=== PATIENT | female | born 1955 | race Caucasian/White ===

== ENCOUNTER 2016-05-30 12:13 | Observation (INO) | payer OTHER ==
[~2016-05-30] VITALS: Ht 157.5 cm; Wt 73.9 kg
[~2016-05-30 12:13] MED LIST: ADVAIR 250/501 DISK IH; ALBUTEROL1.25 MG/3 IH; ALBUTEROL2.5 MG/3 M IH; AMITRIPTYLINE H25 MG PO; ASPIR-LOW81 MG PO; ASPIRIN81 M2 PO; ATARAX,VISTARIL25 MG PO; ATARAX10 MG PO; ATIVAN1 MG PO; ATORVASTATIN CA40 MG PO; AUGMENTIN875 MG PO; BENADRYL25 MG PO; CARISOPRODOL250 MG PO; CARISOPRODOL350 MG PO; COMPAZINE10 MG PO; DEPAKOTE ER500 MG PO; DEPAKOTE500 MG PO; DESCOVY 200-251 EACH PO; DICYCLOMINE HCL20 MG PO; DIVALPROEX SOD500 MG PO; DOXYCYCLINE HY100 MG PO; DUONEB 2.5-0.5 M3 ML AEROSOL; ELAVIL50 MG PO; ELIQUIS5 MG PO; ENDOCET 5-3251 EACH PO; ERGOCALCIF50000 UNIT PO; FIORICET WI1 CAPSULE PO; FLEXERIL10 MG PO; FLUCONAZOLE200 MG PO; GABAPENTIN600 MG PO; GENVOYA TABLET1 EACH PO; IMITREX50 MG PO; INCRUSE ELLI62.5 MCG IH; LEVAQUIN750 MG PO; LEVOTHYROXINE100 MCG PO; LEVOTHYROXINE137 MCG PO; LEVOTHYROXINE150 MCG PO; LIPITOR40 MG PO; LO-DOSE ASPIRIN81 M2 PO; LORAZEPAM1 MG PO; LORTAB 5-325 M1 EACH PO; LUNESTA3 MG PO; MEDROL DOSEPAK4 MG PO; MELOXICAM15 MG PO; NAPROSYN500 MG PO; NEURONTIN300 MG PO; NEXIUM 24HR20 MG PO; NEXIUM20 MG PO; NICOTINE PATCH1 EAC1 TD; NICOTINE PATCH1 EAC2 TD; NICOTINE PATCH1 EACH TD; NORCO 5/3251 TABLET PO; OMEPRAZOLE20 MG PO; ONDANSETRON HCL4 MG PO; OXAYDO5 MG PO; OXYCODONE HCL5 MG PO; PANTOPRAZOLE SO40 MG PO; PAROXETINE HCL20 MG PO; PAXIL20 MG PO; PAXIL30 MG PO; PERCOCET 5/31 TABLET PO; PERCOCET 7.51 TABLET PO; PHENERGAN-CODE120 ML PO; PREDNISONE20 MG PO; PREDNISONE50 MG PO; PREPLUS CA-FE1 EACH PO; PROAIR HFA8.5 GM IH; PROMETHAZINE12.5 M1 PO; PROPRANOLOL HCL80 MG PO; PROVENTIL HFA6.7 GM IH; PROVENTIL2.5 MG/3 M IH; REQUIP1 MG PO; REQUIP2 MG PO; SEROQUEL200 MG PO; SUCRALFATE1 GM PO; SUMATRIPTAN SUC25 MG PO; SYMBICORT60 INHALAT IH; SYNTHROID125 MCG PO; TIVICAY50 MG PO; TRUVADA1 TABLET PO; TYLENOL WITH C1 EACH PO; VALIUM5 MG PO; VENTOLIN HFA18 GM IH; VITAMIN B-6100 MG PO; VITAMIN D31000 UNIT PO; ZITHROMAX Z-PA250 MG PO; ZOFRAN ODT4 MG PO; ZOFRAN ODT8 MG PO; ZOFRAN4 MG PO
[2016-05-30 13:39] LABS: EOSINOPHIL (%) 1.9 % (0-5); EOSINOPHIL COUNT 0.1 K/uL (0-0.3); LYMPHOCYTE COUNT 2.5 K/uL (1.0-2.8); MCH 37.2 PG (29.0-34.0); MCHC 35.4 G/DL (30.0-36.0); MCV 105.1 FL (83-99); MONOCYTE (%) 7.7 % (3-12); MONOCYTE COUNT 0.4 K/uL (0-0.8); NEUTROPHIL (%) 42.7 % (45-76); NEUTROPHIL COUNT 2.3 K/uL (1.8-6.4); RBC DIS.WIDTH-CV 12.8 % (11.8-14.6); RBC DIS.WIDTH-SD 47.8 % (39-53); RED BLOOD COUNT 3.52 M/uL (3.80-5.20); WHITE BLOOD COUNT 5.3 K/uL (4.1-10.2)
[2016-05-30 13:41] LABS: MEAN PLAT.VOLUME 8.9 uM^3 (9.5-12.4)
[2016-05-30 13:48] LABS: PROTHROMBIN TIME 10.2 (9.2-11.2); PTT 23.7 (25-32)
[2016-05-30 13:49] LABS: CHLORIDE 109 mEq/L (99-109); POTASSIUM 3.6 mEq/L (3.7-5.4); SODIUM 143 mEq/L (136-147)
[2016-05-30 13:51] LABS: GLUCOSE 115 mg/dL (70-99)
[2016-05-30 13:53] LABS: ANION GAP 11 MEQ/L (2-14); TOTAL BILIRUBIN 0.3 mg/dL (0.0-1.0)
[2016-05-30 13:55] LABS: ALKALINE PHOSPHATASE 73 IU/L (3-129); GFR ESTIMATE (CALCULATED) 44 mL/min/
[2016-05-30 13:56] LABS: UREA NITROGEN (BUN) 12 mg/dL (9-23)
[2016-05-30 13:59] LABS: PLATELET COUNT 312 K/uL (156-360)
[2016-05-30 14:07] LABS: TROP-I INTERPRETATION NEGATIVE; TROPONIN-I < 0.01 ng/mL (0.0-0.30)
[2016-05-30 14:40] LABS: HDL CHOLESTEROL 44 MG/DL (Desirable>=50); LDL CHOLESTEROL 184 mg/dL (Desirable<100); NON-HDL CHOLESTEROL 231 mg/dL (Desirable<160); TOTAL CHOLESTEROL 275 mg/dL (Desirable<200); TRIGLYCERIDES 236 MG/DL (Normal: <150)
[2016-05-30 14:42] LABS: Estimated Average Glucose 126 mg/dL (70-123)
[2016-05-30] MEDS ORDERED: ONDANSETRON ODT4 MG PO (14:58)
[2016-05-30] MEDS ORDERED: NEXIUM20 MG PO (14:59)
[2016-05-30 15:16] LABS: ADD MIUA? NO; BILIRUBIN NEGATIVE; BLOOD NEGATIVE; COLOR YELLOW ((YELLOW)); GLUCOSE (STRIP) NEGATIVE; KETONES NEGATIVE; LEUKOCYTES NEGATIVE; NITRITE NEGATIVE; PROTEIN (STRIP) NEGATIVE; UCUL ADDED? NO; UROBILINOGEN 0.2 MG/DL (0.2-1.0)
[2016-05-30 18:54] VITALS: BP 127/69
[2016-05-30 20:58] VITALS: BP 125/77
[2016-05-31 00:16] VITALS: BP 104/67
[2016-05-31 08:00] VITALS: BP 122/77
[2016-05-31] MEDS ORDERED: ATORVASTATIN CA40 MG PO (10:12)
[2016-05-31] MEDS ORDERED: BUTALB-APAP-CA1 EACH PO (11:47)
== END 2016-05-31 11:52 | disposition home or self-care (01) ==
LOC: EME 12:13 → EDOF 15:29 → 5WEST 15:29 → EDOF 15:29 → 5WEST 17:29
PROVIDERS: Emergency Medicine
DX: G44.309 Post-traumatic headache, unspecified, not intractable (principal); R47.81 Slurred speech; W00.1XXA Fall from stairs and steps due to ice and snow, initial encounter; W22.8XXA Striking against or struck by other objects, initial encounter; F17.200 Nicotine dependence, unspecified, uncomplicated; Z86.73 Personal history of transient ischemic attack (TIA), and cerebral infarction without residual deficits; Z86.718 Personal history of other venous thrombosis and embolism; K21.9 Gastro-esophageal reflux disease without esophagitis; B20 Human immunodeficiency virus [HIV] disease; J44.9 Chronic obstructive pulmonary disease, unspecified; I10 Essential (primary) hypertension; E03.9 Hypothyroidism, unspecified; Z79.01 Long term (current) use of anticoagulants; Z87.891 Personal history of nicotine dependence; Z79.891 Long term (current) use of opiate analgesic; Z82.79 Family history of other congenital malformations, deformations and chromosomal abnormalities; Z82.3 Family history of stroke; Z88.8 Allergy status to other drugs, medicaments and biological substances
CPT/HCPCS: 70450; 70496; 70498; 71020; 80053; 80061; 81003; 83036; 84484; 85025; 85610; 85730; 93005; 94640; 94640 76; 99202; 99281; 99285; G0378; J0780; J2060; J7040

== ENCOUNTER 2016-06-15 11:05 | Emergency (ER) | payer OTHER ==
[~2016-06-15] VITALS: Ht 157.5 cm; Wt 74.3 kg
[~2016-06-15 11:05] MED LIST changes: +BUTALB-APAP-CA1 EACH PO; +ONDANSETRON ODT4 MG PO
[2016-06-15] MEDS ORDERED: OXAYDO5 MG PO (14:45)
[2016-06-15] MEDS ORDERED: BACLOFEN10 MG PO (14:45)
[2016-06-15 14:56] VITALS: BP 96/67
== END 2016-06-15 15:00 | disposition home or self-care (01) ==
LOC: EME 11:05
DX: M54.5 Low back pain (principal); M25.551 Pain in right hip; E11.9 Type 2 diabetes mellitus without complications; I10 Essential (primary) hypertension; W10.9XXA Fall (on) (from) unspecified stairs and steps, initial encounter; Z79.01 Long term (current) use of anticoagulants; Z86.73 Personal history of transient ischemic attack (TIA), and cerebral infarction without residual deficits; Z79.4 Long term (current) use of insulin; Z21 Asymptomatic human immunodeficiency virus [HIV] infection status; Z86.711 Personal history of pulmonary embolism; Z86.718 Personal history of other venous thrombosis and embolism; Z88.6 Allergy status to analgesic agent; Z88.2 Allergy status to sulfonamides
CPT/HCPCS: 70450; 72100; 73502; 99281; 99285; J1170; J2405

== ENCOUNTER 2016-06-27 11:09 | Emergency (ER) | payer OTHER ==
[~2016-06-27] VITALS: Ht 157.5 cm; Wt 77.3 kg
[~2016-06-27 11:09] MED LIST changes: +BACLOFEN10 MG PO
[2016-06-27 12:26] LABS: CHLORIDE 110 mEq/L (99-109); POTASSIUM 3.9 mEq/L (3.7-5.4); SODIUM 140 mEq/L (136-147)
[2016-06-27 12:27] LABS: PROTHROMBIN TIME 10.2 (9.2-11.2); PTT 24.3 (25-32)
[2016-06-27 12:28] LABS: GLUCOSE 159 mg/dL (70-99)
[2016-06-27 12:29] LABS: ANION GAP 10 MEQ/L (2-14)
[2016-06-27 12:30] LABS: TOTAL BILIRUBIN 0.2 mg/dL (0.0-1.0)
[2016-06-27 12:31] LABS: ALKALINE PHOSPHATASE 82 IU/L (3-129)
[2016-06-27 12:32] LABS: GFR ESTIMATE (CALCULATED) 54 mL/min/
[2016-06-27 12:33] LABS: UREA NITROGEN (BUN) 8 mg/dL (9-23)
[2016-06-27 12:35] LABS: LIPASE 30 U/L (1.0-51.0)
[2016-06-27 12:37] LABS: TROP-I INTERPRETATION NEGATIVE; TROPONIN-I < 0.01 ng/mL (0.0-0.30)
[2016-06-27 12:53] LABS: EOSINOPHIL (%) 2.7 % (0-5); EOSINOPHIL COUNT 0.1 K/uL (0-0.3); HEMATOCRIT 38.2 % (36.0-46.0); IMMATURE GRANULOCYTE (%) 0.2 % (0.0-0.7); LYMPHOCYTE COUNT 2.3 K/uL (1.0-2.8); MCH 36.1 PG (29.0-34.0); MCHC 34.8 G/DL (30.0-36.0); MCV 103.8 FL (83-99); MEAN PLAT.VOLUME 9.7 uM^3 (9.5-12.4); MONOCYTE (%) 7.4 % (3-12); MONOCYTE COUNT 0.4 K/uL (0-0.8); NEUTROPHIL (%) 42.8 % (45-76); NEUTROPHIL COUNT 2.1 K/uL (1.8-6.4); PLATELET COUNT 263 K/uL (156-360); RBC DIS.WIDTH-CV 12.5 % (11.8-14.6); RBC DIS.WIDTH-SD 47.2 % (39-53); RED BLOOD COUNT 3.68 M/uL (3.80-5.20); WHITE BLOOD COUNT 4.9 K/uL (4.1-10.2)
[2016-06-27 14:52] LABS: ADD MIUA? YES; BILIRUBIN NEGATIVE; BLOOD NEGATIVE; COLOR YELLOW ((YELLOW)); GLUCOSE (STRIP) NEGATIVE; KETONES NEGATIVE; LEUKOCYTES NEGATIVE; NITRITE NEGATIVE; PROTEIN (STRIP) NEGATIVE; UROBILINOGEN 0.2 MG/DL (0.2-1.0)
[2016-06-27 15:02] LABS: BACTERIA NONE SEEN /HPF; CRYSTALS NONE SEEN; EPITHELIAL CELLS 1+ /HPF; MUCUS TRACE /LPF; RED BLOOD CELLS 0-5 /HPF (0-5); SPECIFIC GRAVITY 1.054 (1.000-1.030); UCUL ADDED? NO; WHITE BLOOD CELLS 0-5 /HPF (0-5)
[2016-06-27 15:03] LABS: CASTS NONE SEEN /LPF
[2016-06-27] MEDS ORDERED: PERCOCET 5/31 TABLET PO (15:57)
[2016-06-27 16:25] VITALS: BP 118/81
== END 2016-06-27 16:25 | disposition home or self-care (01) ==
LOC: EME → EDBD 11:09 → EME 16:25
PROVIDERS: Emergency Medicine
DX: S70.01XD Contusion of right hip, subsequent encounter (principal); W10.9XXD Fall (on) (from) unspecified stairs and steps, subsequent encounter; R20.2 Paresthesia of skin; R51 Headache; R06.02 Shortness of breath; R05 Cough; R00.0 Tachycardia, unspecified; R11.10 Vomiting, unspecified; I10 Essential (primary) hypertension; J45.909 Unspecified asthma, uncomplicated; J44.9 Chronic obstructive pulmonary disease, unspecified; B20 Human immunodeficiency virus [HIV] disease; G89.29 Other chronic pain; Z86.711 Personal history of pulmonary embolism; Z86.718 Personal history of other venous thrombosis and embolism; Z79.01 Long term (current) use of anticoagulants; Z79.891 Long term (current) use of opiate analgesic
CPT/HCPCS: 70450; 71020; 71275; 72192; 80053; 81003; 83690; 84484; 85025; 85610; 85730; 93005; 94640; 99281; 99285; J2405; J7040

== ENCOUNTER 2016-07-19 23:51 | Observation (INO) | payer OTHER ==
[~2016-07-19] VITALS: Ht 157.5 cm; Wt 79.0 kg
[2016-07-20 00:21] LABS: HEMATOCRIT 37.3 % (36.0-46.0); MCH 35.4 PG (29.0-34.0); MCHC 34.6 G/DL (30.0-36.0); MCV 102.5 FL (83-99); PLATELET COUNT 327 K/uL (156-360); RBC DIS.WIDTH-CV 11.8 % (11.8-14.6); RBC DIS.WIDTH-SD 43.2 % (39-53); RED BLOOD COUNT 3.64 M/uL (3.80-5.20); WHITE BLOOD COUNT 5.1 K/uL (4.1-10.2)
[2016-07-20 00:35] LABS: CHLORIDE 109 mEq/L (99-109); SODIUM 140 mEq/L (136-147)
[2016-07-20 00:36] LABS: GLUCOSE 171 mg/dL (70-99)
[2016-07-20 00:38] LABS: ANION GAP 13 MEQ/L (2-14)
[2016-07-20 00:40] LABS: GFR ESTIMATE (CALCULATED) 41 mL/min/
[2016-07-20 00:41] LABS: UREA NITROGEN (BUN) 16 mg/dL (9-23)
[2016-07-20 00:44] LABS: TROP-I INTERPRETATION NEGATIVE; TROPONIN-I < 0.01 ng/mL (0.0-0.30)
[2016-07-20 01:05] LABS: INTER. NORMALIZED RATIO 1.1; PROTHROMBIN TIME 11.6 (9.2-11.2); PTT 24.5 (25-32)
[2016-07-20 02:34] LABS: INFLUENZA A VIRAL ANTIGEN NEGATIVE; INFLUENZA B VIRAL ANTIGEN NEGATIVE
[2016-07-20] MEDS ORDERED: LEVOFLOXACIN750 MG PO (03:09)
[2016-07-20] MEDS ORDERED: ELAVIL25 MG PO (03:10)
[2016-07-20] MEDS ORDERED: INCRUSE ELLI62.5 MCG IH (03:16)
[2016-07-20 06:13] VITALS: BP 125/79
[2016-07-20 07:01] LABS: TROP-I INTERPRETATION NEGATIVE; TROPONIN-I < 0.01 ng/mL (0.0-0.30)
[2016-07-20] MEDS ORDERED: EDURANT25 MG PO (11:23)
[2016-07-20] MEDS ORDERED: VITAMIN D31000 UNIT PO (11:24)
[2016-07-20] MEDS ORDERED: OMEPRAZOLE20 MG PO (11:24)
[2016-07-20 11:42] VITALS: BP 100/53
[2016-07-20] MEDS ORDERED: GUAIFENESI100 MG/5 M PO (12:09)
[2016-07-20 13:02] LABS: TROP-I INTERPRETATION NEGATIVE; TROPONIN-I < 0.01 ng/mL (0.0-0.30)
[2016-07-20 13:03] LABS: ANION GAP 6 MEQ/L (2-14); CHLORIDE 108 MEQ/L (99-109); GFR ESTIMATE (CALCULATED) 54 mL/min/; POTASSIUM 4.4 MEQ/L (3.7-5.4); SAMPLE HEMOLYSIS CHECK 0; SAMPLE ICTERIC CHECK 0; SAMPLE LIPEMIA CHECK 0; SODIUM 139 MEQ/L (136-147); UREA NITROGEN (BUN) 15 mg/dL (9-23)
[2016-07-20 13:05] LABS: GLUCOSE 120 mg/dL (70-99)
[2016-07-20] MEDS ORDERED: PERCOCET 7.51 TABLET PO (14:31)
== END 2016-07-20 15:37 | disposition home or self-care (01) ==
LOC: EME 23:51 → EDOF 07-20 04:13 → 5WEST 07-20 05:14
PROVIDERS: Emergency Medicine; Hospitalist; Physician Assistant
DX: R07.89 Other chest pain (principal); N17.9 Acute kidney failure, unspecified; B34.9 Viral infection, unspecified; E83.52 Hypercalcemia; R11.2 Nausea with vomiting, unspecified; R19.7 Diarrhea, unspecified; J44.9 Chronic obstructive pulmonary disease, unspecified; B20 Human immunodeficiency virus [HIV] disease; F31.9 Bipolar disorder, unspecified; F41.9 Anxiety disorder, unspecified; G89.29 Other chronic pain; E03.9 Hypothyroidism, unspecified; E78.5 Hyperlipidemia, unspecified; G43.909 Migraine, unspecified, not intractable, without status migrainosus; Z86.711 Personal history of pulmonary embolism; Z86.718 Personal history of other venous thrombosis and embolism
CPT/HCPCS: 71020; 71275; 80048; 80048 91; 84484; 85027; 85610; 85730; 87502; 93005; 94640; 94640 76; 94799; 99202; 99281; 99285; G0378; J1170; J2270; J2405; J7030; J7050

== ENCOUNTER 2016-08-03 12:20 | Emergency (ER) | payer OTHER ==
[~2016-08-03] VITALS: Ht 157.5 cm; Wt 76.3 kg
[~2016-08-03 12:20] MED LIST changes: +EDURANT25 MG PO; +ELAVIL25 MG PO; +GUAIFENESI100 MG/5 M PO; +LEVOFLOXACIN750 MG PO
[2016-08-03 14:15] VITALS: BP 130/89
== END 2016-08-03 14:15 | disposition home or self-care (01) ==
LOC: RME 12:20 → EME 12:20 → RME 14:15
DX: S46.911A Strain of unspecified muscle, fascia and tendon at shoulder and upper arm level, right arm, initial encounter (principal); S80.01XA Contusion of right knee, initial encounter; W00.0XXA Fall on same level due to ice and snow, initial encounter; J45.909 Unspecified asthma, uncomplicated; J44.9 Chronic obstructive pulmonary disease, unspecified; E11.9 Type 2 diabetes mellitus without complications; I10 Essential (primary) hypertension; K21.9 Gastro-esophageal reflux disease without esophagitis; F03.90 Unspecified dementia, unspecified severity, without behavioral disturbance, psychotic disturbance, mood disturbance, and anxiety; Z21 Asymptomatic human immunodeficiency virus [HIV] infection status; Z86.711 Personal history of pulmonary embolism; Z86.718 Personal history of other venous thrombosis and embolism; Z86.73 Personal history of transient ischemic attack (TIA), and cerebral infarction without residual deficits; Z87.891 Personal history of nicotine dependence
CPT/HCPCS: 73030; 73564; 99281; 99283

== ENCOUNTER 2016-09-06 15:03 | Emergency (ER) | payer OTHER ==
[~2016-09-06] VITALS: Ht 157.5 cm; Wt 77.1 kg
[2016-09-06 17:44] VITALS: BP 144/90
== END 2016-09-06 17:46 | disposition home or self-care (01) ==
LOC: EME 15:03
DX: S09.90XA Unspecified injury of head, initial encounter (principal); S50.311A Abrasion of right elbow, initial encounter; V11.0XXA Pedal cycle driver injured in collision with other pedal cycle in nontraffic accident, initial encounter; Z79.01 Long term (current) use of anticoagulants; Z86.73 Personal history of transient ischemic attack (TIA), and cerebral infarction without residual deficits; J45.909 Unspecified asthma, uncomplicated; E11.9 Type 2 diabetes mellitus without complications; J44.9 Chronic obstructive pulmonary disease, unspecified; I10 Essential (primary) hypertension; Z86.718 Personal history of other venous thrombosis and embolism; Z86.711 Personal history of pulmonary embolism; Z88.5 Allergy status to narcotic agent; Z88.6 Allergy status to analgesic agent; Z88.1 Allergy status to other antibiotic agents; Z88.2 Allergy status to sulfonamides; F17.200 Nicotine dependence, unspecified, uncomplicated
CPT/HCPCS: 70450; 72125; 73080; 99281; 99284

== ENCOUNTER 2016-10-30 12:45 | Emergency (ER) | payer OTHER ==
[~2016-10-30] VITALS: Ht 152.4 cm; Wt 74.3 kg
[2016-10-30 13:54] LABS: EOSINOPHIL (%) 2.6 % (0-5); EOSINOPHIL COUNT 0.1 K/uL (0-0.3); HEMATOCRIT 40.6 % (36.0-46.0); IMMATURE GRANULOCYTE (%) 0.2 % (0.0-0.7); INSTRUMENT ABS NEUTROPHIL CT 2.3 K/uL; LYMPHOCYTE COUNT 2.5 K/uL (1.0-2.8); MCH 35.8 PG (29.0-34.0); MCHC 34.2 G/DL (30.0-36.0); MCV 104.6 FL (83-99); MEAN PLAT.VOLUME 8.6 uM^3 (9.5-12.4); MONOCYTE (%) 6.8 % (3-12); MONOCYTE COUNT 0.4 K/uL (0-0.8); NEUTROPHIL (%) 42.3 % (45-76); NEUTROPHIL COUNT 2.3 K/uL (1.8-6.4); PLATELET COUNT 216 K/uL (156-360); RBC DIS.WIDTH-CV 13.9 % (11.8-14.6); RBC DIS.WIDTH-SD 54.3 % (39-53); RED BLOOD COUNT 3.88 M/uL (3.80-5.20); WHITE BLOOD COUNT 5.3 K/uL (4.1-10.2)
[2016-10-30 14:04] LABS: CHLORIDE 106 mEq/L (99-109); SODIUM 139 mEq/L (136-147)
[2016-10-30 14:05] LABS: PROTHROMBIN TIME 10.1 (9.2-11.2); PTT 21.9 (25-32)
[2016-10-30 14:06] LABS: GLUCOSE 101 mg/dL (70-99)
[2016-10-30 14:08] LABS: ANION GAP 8 MEQ/L (2-14); TOTAL BILIRUBIN 0.4 mg/dL (0.0-1.0)
[2016-10-30 14:10] LABS: ALKALINE PHOSPHATASE 87 IU/L (3-129); GFR ESTIMATE (CALCULATED) 44 mL/min/
[2016-10-30 14:11] LABS: UREA NITROGEN (BUN) 16 mg/dL (9-23)
[2016-10-30 16:38] LABS: ADD MIUA? YES; BILIRUBIN NEGATIVE; BLOOD NEGATIVE; COLOR YELLOW ((YELLOW)); GLUCOSE (STRIP) NEGATIVE; KETONES 5; LEUKOCYTES NEGATIVE; NITRITE NEGATIVE; PROTEIN (STRIP) 30; SPECIFIC GRAVITY 1.019 (1.000-1.030); UROBILINOGEN 0.2 MG/DL (0.2-1.0)
[2016-10-30 16:41] LABS: BACTERIA RARE /HPF; EPITHELIAL CELLS 2+ /HPF; MUCUS 4+ /LPF; RED BLOOD CELLS 0-5 /HPF (0-5); UCUL ADDED? NO; WHITE BLOOD CELLS 0-5 /HPF (0-5)
[2016-10-30] MEDS ORDERED: MEDROL DOSEPAK4 MG PO (16:54)
[2016-10-30 17:32] VITALS: BP 95/58
== END 2016-10-30 17:49 | disposition home or self-care (01) ==
LOC: EME 12:45
PROVIDERS: Emergency Medicine
DX: M54.41 Lumbago with sciatica, right side (principal); M79.605 Pain in left leg; R20.2 Paresthesia of skin; R51 Headache; Z86.711 Personal history of pulmonary embolism; Z86.718 Personal history of other venous thrombosis and embolism; G89.29 Other chronic pain; J44.9 Chronic obstructive pulmonary disease, unspecified; J45.909 Unspecified asthma, uncomplicated; I10 Essential (primary) hypertension; B20 Human immunodeficiency virus [HIV] disease; Z88.5 Allergy status to narcotic agent; F17.200 Nicotine dependence, unspecified, uncomplicated
CPT/HCPCS: 80053; 81003; 85025; 85610; 85730; 93970; 99281; 99285; J1100; J3010; J7030

== ENCOUNTER 2016-12-01 12:55 | Emergency (ER) | payer OTHER ==
[~2016-12-01] VITALS: Ht 152.4 cm; Wt 77.2 kg
[2016-12-01 13:21] LABS: EOSINOPHIL (%) 2.7 % (0-5); EOSINOPHIL COUNT 0.2 K/uL (0-0.3); HEMATOCRIT 39.7 % (36.0-46.0); IMMATURE GRANULOCYTE (%) 0.3 % (0.0-0.7); INSTRUMENT ABS NEUTROPHIL CT 2.6 K/uL; LYMPHOCYTE COUNT 3.1 K/uL (1.0-2.8); MCH 36.6 PG (29.0-34.0); MCHC 35.3 G/DL (30.0-36.0); MCV 103.7 FL (83-99); MEAN PLAT.VOLUME 9.3 uM^3 (9.5-12.4); MONOCYTE (%) 6.9 % (3-12); MONOCYTE COUNT 0.4 K/uL (0-0.8); NEUTROPHIL (%) 41.2 % (45-76); NEUTROPHIL COUNT 2.6 K/uL (1.8-6.4); PLATELET COUNT 223 K/uL (156-360); RBC DIS.WIDTH-CV 12.9 % (11.8-14.6); RBC DIS.WIDTH-SD 49.8 % (39-53); RED BLOOD COUNT 3.83 M/uL (3.80-5.20); WHITE BLOOD COUNT 6.4 K/uL (4.1-10.2)
[2016-12-01 13:32] LABS: PROTHROMBIN TIME 9.8 (9.2-11.2); PTT 22.6 (25-32)
[2016-12-01 13:34] LABS: AMYLASE 21 IU/L (1-118); CHLORIDE 107 mEq/L (99-109); POTASSIUM 4.6 mEq/L (3.7-5.4); SODIUM 140 mEq/L (136-147)
[2016-12-01 13:35] LABS: GLUCOSE 98 mg/dL (70-99)
[2016-12-01 13:37] LABS: ANION GAP 13 MEQ/L (2-14)
[2016-12-01 13:38] LABS: SERUM ETHYL ALCOHOL < 10 mg/dL
[2016-12-01 13:39] LABS: GFR ESTIMATE (CALCULATED) 44 mL/min/
[2016-12-01 13:40] LABS: UREA NITROGEN (BUN) 16 mg/dL (9-23)
[2016-12-01 13:42] LABS: LIPASE 43 U/L (1.0-51.0)
[2016-12-01 13:48] LABS: TROP-I INTERPRETATION NEGATIVE; TROPONIN-I < 0.01 ng/mL (0.0-0.30)
[2016-12-01] MEDS ORDERED: LIDODERM 5% P1 PATCH TD (15:44)
[2016-12-01] MEDS ORDERED: PERCOCET 5/31 TABLET PO (15:44)
[2016-12-01 15:48] VITALS: BP 155/85
== END 2016-12-01 15:54 | disposition home or self-care (01) ==
LOC: EME 12:55
PROVIDERS: Emergency Medicine
DX: S09.90XA Unspecified injury of head, initial encounter (principal); W01.10XA Fall on same level from slipping, tripping and stumbling with subsequent striking against unspecified object, initial encounter; Y92.512 Supermarket, store or market as the place of occurrence of the external cause; R41.0 Disorientation, unspecified; R47.81 Slurred speech; M54.9 Dorsalgia, unspecified; F03.90 Unspecified dementia, unspecified severity, without behavioral disturbance, psychotic disturbance, mood disturbance, and anxiety; I10 Essential (primary) hypertension; E11.9 Type 2 diabetes mellitus without complications; J44.9 Chronic obstructive pulmonary disease, unspecified; K21.9 Gastro-esophageal reflux disease without esophagitis; Z86.73 Personal history of transient ischemic attack (TIA), and cerebral infarction without residual deficits; F32.9 Major depressive disorder, single episode, unspecified; Z86.711 Personal history of pulmonary embolism; Z86.718 Personal history of other venous thrombosis and embolism; Z79.01 Long term (current) use of anticoagulants; F17.200 Nicotine dependence, unspecified, uncomplicated
CPT/HCPCS: 70450; 72125; 73030; 73080; 80048; 81003; 82150; 83690; 84484; 85025; 85610; 85730; 86900; 86901; 94640; 99281; 99285; G0480

== ENCOUNTER 2016-12-18 09:20 | Emergency (ER) | payer OTHER ==
[~2016-12-18] VITALS: Ht 152.4 cm; Wt 73.3 kg
[~2016-12-18 09:20] MED LIST changes: +LIDODERM 5% P1 PATCH TD
[2016-12-18 10:01] LABS: EOSINOPHIL (%) 2.7 % (0-5); EOSINOPHIL COUNT 0.2 K/uL (0-0.3); HEMATOCRIT 39.2 % (36.0-46.0); IMMATURE GRANULOCYTE (%) 0.2 % (0.0-0.7); INSTRUMENT ABS NEUTROPHIL CT 2.6 K/uL; LYMPHOCYTE COUNT 2.4 K/uL (1.0-2.8); MCH 36.2 PG (29.0-34.0); MCHC 34.9 G/DL (30.0-36.0); MCV 103.7 FL (83-99); MEAN PLAT.VOLUME 9.5 uM^3 (9.5-12.4); MONOCYTE (%) 6.5 % (3-12); MONOCYTE COUNT 0.4 K/uL (0-0.8); NEUTROPHIL (%) 46.6 % (45-76); NEUTROPHIL COUNT 2.6 K/uL (1.8-6.4); PLATELET COUNT 241 K/uL (156-360); RBC DIS.WIDTH-CV 12.7 % (11.8-14.6); RBC DIS.WIDTH-SD 48.2 % (39-53); RED BLOOD COUNT 3.78 M/uL (3.80-5.20); WHITE BLOOD COUNT 5.5 K/uL (4.1-10.2)
[2016-12-18 10:16] LABS: CHLORIDE 109 mEq/L (99-109); POTASSIUM 3.7 mEq/L (3.7-5.4); SODIUM 140 mEq/L (136-147)
[2016-12-18 10:18] LABS: GLUCOSE 111 mg/dL (70-99)
[2016-12-18 10:19] LABS: ANION GAP 8 MEQ/L (2-14)
[2016-12-18 10:21] LABS: GFR ESTIMATE (CALCULATED) 49 mL/min/
[2016-12-18 10:22] LABS: UREA NITROGEN (BUN) 21 mg/dL (9-23)
[2016-12-18] MEDS ORDERED: TYLENOL WITH C1 EACH PO (12:49)
[2016-12-18 13:20] VITALS: BP 114/81
== END 2016-12-18 13:20 | disposition home or self-care (01) ==
LOC: EME 09:20
PROVIDERS: Emergency Medicine
DX: R51 Headache (principal); K52.9 Noninfective gastroenteritis and colitis, unspecified; K21.9 Gastro-esophageal reflux disease without esophagitis; J44.9 Chronic obstructive pulmonary disease, unspecified; I10 Essential (primary) hypertension; F03.90 Unspecified dementia, unspecified severity, without behavioral disturbance, psychotic disturbance, mood disturbance, and anxiety; E11.9 Type 2 diabetes mellitus without complications; Z21 Asymptomatic human immunodeficiency virus [HIV] infection status; F17.200 Nicotine dependence, unspecified, uncomplicated; Z86.711 Personal history of pulmonary embolism; Z86.718 Personal history of other venous thrombosis and embolism; Z86.73 Personal history of transient ischemic attack (TIA), and cerebral infarction without residual deficits
CPT/HCPCS: 70450; 80048; 85025; 99281; 99285; J1885; J2270; J2405; J7030

== ENCOUNTER 2017-01-12 10:27 | Inpatient (IN) | payer OTHER ==
[2017-01-12] VITALS (19 sets, daily range): BP systolic 0–161; BP diastolic 0–129
[~2017-01-12] VITALS: Ht 152.4 cm; Wt 72.5 kg
[2017-01-12 11:04] LABS: EOSINOPHIL COUNT 0.2 K/uL (0-0.3); HEMATOCRIT 38.7 % (36.0-46.0); IMMATURE GRANULOCYTE (%) 0.2 % (0.0-0.7); INSTRUMENT ABS NEUTROPHIL CT 2.4 K/uL; MCH 36.5 PG (29.0-34.0); MCHC 34.4 G/DL (30.0-36.0); MCV 106.3 FL (83-99); MONOCYTE (%) 7.6 % (3-12); MONOCYTE COUNT 0.4 K/uL (0-0.8); NEUTROPHIL (%) 48.4 % (45-76); NEUTROPHIL COUNT 2.4 K/uL (1.8-6.4); PLATELET COUNT 208 K/uL (156-360); RBC DIS.WIDTH-CV 12.5 % (11.8-14.6); RBC DIS.WIDTH-SD 48.9 % (39-53); RED BLOOD COUNT 3.64 M/uL (3.80-5.20)
[2017-01-12 11:10] LABS: INTER. NORMALIZED RATIO 0.9
[2017-01-12 11:12] LABS: PTT 24.3 SEC (25-37)
[2017-01-12 11:14] LABS: PROTHROMBIN TIME 9.4 SEC (10.2-12.9)
[2017-01-12 11:16] LABS: AMYLASE 28 IU/L (1-118); CHLORIDE 111 mEq/L (99-109); POTASSIUM 3.7 mEq/L (3.7-5.4); SODIUM 140 mEq/L (136-147)
[2017-01-12 11:18] LABS: GLUCOSE 93 mg/dL (70-99)
[2017-01-12 11:19] LABS: ANION GAP 9 MEQ/L (2-14)
[2017-01-12 11:21] LABS: SERUM ETHYL ALCOHOL < 10 mg/dL
[2017-01-12 11:22] LABS: GFR ESTIMATE (CALCULATED) > 59 mL/min/
[2017-01-12 11:23] LABS: UREA NITROGEN (BUN) 15 mg/dL (9-23)
[2017-01-12 11:25] LABS: LIPASE 31 U/L (1.0-51.0)
[2017-01-12 11:59] LABS: TROP-I INTERPRETATION NEGATIVE; TROPONIN-I < 0.01 ng/mL (0.0-0.30)
[2017-01-12 12:25] LABS: ADD MIUA? NO; BILIRUBIN NEGATIVE; BLOOD NEGATIVE; COLOR STRAW ((YELLOW)); GLUCOSE (STRIP) NEGATIVE; KETONES NEGATIVE; LEUKOCYTES NEGATIVE; NITRITE NEGATIVE; PROTEIN (STRIP) NEGATIVE; SPECIFIC GRAVITY 1.008 (1.000-1.030); UCUL ADDED? NO; UROBILINOGEN 0.2 MG/DL (0.2-1.0)
[2017-01-12 12:41] LABS: ADD MEDTOX COMMENT Y; AMPHETAMINE NEGATIVE (500 ng/mL); BARBITURATES NEGATIVE (200 ng/mL); BENZODIAZEPINES NEGATIVE (150 ng/mL); COCAINE PRESUMPTIVE POSITIVE (150 ng/mL); INTERNAL CONTROLS VALID? YES; METHADONE NEGATIVE (200 ng/mL); METHAMPHETAMINE NEGATIVE (500 ng/mL); OPIATES (MORPHINE) PRESUMPTIVE POSITIVE (100 ng/mL); OXYCODONE NEGATIVE (100 ng/mL); PHENCYCLIDINE NEGATIVE (25 ng/mL); PROPOXYPHENE NEGATIVE (300 ng/mL); THC CANNABINOIDS NEGATIVE (50 ng/mL); TRICYCLIC ANTIDEPRESSANTS NEGATIVE (300 ng/mL)
[2017-01-12] MEDS ORDERED: INDERAL LA120 MG PO (14:29)
[2017-01-12] MEDS ORDERED: MOBIC15 MG PO (14:31)
[2017-01-12] MEDS ORDERED: LEVOTHYROXINE125 MCG PO (14:31)
[2017-01-12] MEDS ORDERED: COMPAZINE10 MG PO (14:32)
[2017-01-12] MEDS ORDERED: TESSALON PERLE100 MG PO (14:32)
[2017-01-12] MEDS ORDERED: NEURONTIN100 MG PO (14:33)
[2017-01-12 18:23] LABS: METH RESISTANT S AUREUS PCR NEGATIVE (NEGATIVE)
[2017-01-12 18:26] LABS: SPECIMEN PROCESSING CONTROL PASS
[2017-01-12 18:27] LABS: PROBE CHECK PASS
[2017-01-13] VITALS (29 sets, daily range): BP systolic 0–149; BP diastolic 0–108
[2017-01-13 06:46] LABS: HEMATOCRIT 37.4 % (36.0-46.0); MCH 36.7 PG (29.0-34.0); MCHC 34.2 G/DL (30.0-36.0); MCV 107.2 FL (83-99); MEAN PLAT.VOLUME 9.1 uM^3 (9.5-12.4); PLATELET COUNT 220 K/uL (156-360); RBC DIS.WIDTH-CV 12.6 % (11.8-14.6); RBC DIS.WIDTH-SD 49.9 % (39-53); RED BLOOD COUNT 3.49 M/uL (3.80-5.20); WHITE BLOOD COUNT 5.4 K/uL (4.1-10.2)
[2017-01-13 07:18] LABS: PTT 25.5 SEC (25-37)
[2017-01-13 14:14] LABS: HDL CHOLESTEROL 37 MG/DL (Desirable>=50); NON-HDL CHOLESTEROL 203 mg/dL (Desirable<160); TOTAL CHOLESTEROL 240 mg/dL (Desirable<200); TRIGLYCERIDES 440 MG/DL (Normal: <150)
[2017-01-14 03:30] VITALS: BP 133/93
[2017-01-14 08:19] VITALS: BP 137/68
[2017-01-14 12:55] VITALS: BP 127/78
[2017-01-14 15:55] VITALS: BP 142/83
[2017-01-14 18:38] LABS: POINT-OF-CARE METER ID UU14100415
[2017-01-14 19:48] VITALS: BP 117/72
[2017-01-15] VITALS: BP 138/63
[2017-01-15 08:35] VITALS: BP 128/68
[2017-01-15 17:50] VITALS: BP 130/72
[2017-01-16 00:13] VITALS: BP 148/76
[2017-01-16 06:41] LABS: EOSINOPHIL (%) 1.9 % (0-5); EOSINOPHIL COUNT 0.1 K/uL (0-0.3); HEMATOCRIT 39.4 % (36.0-46.0); IMMATURE GRANULOCYTE (%) 0.3 % (0.0-0.7); INSTRUMENT ABS NEUTROPHIL CT 4.1 K/uL; LYMPHOCYTE COUNT 2.1 K/uL (1.0-2.8); MCH 37.8 PG (29.0-34.0); MCV 104.8 FL (83-99); MEAN PLAT.VOLUME 9.5 uM^3 (9.5-12.4); MONOCYTE (%) 5.4 % (3-12); MONOCYTE COUNT 0.4 K/uL (0-0.8); NEUTROPHIL COUNT 4.1 K/uL (1.8-6.4); PLATELET COUNT 270 K/uL (156-360); RBC DIS.WIDTH-SD 46.6 % (39-53); RED BLOOD COUNT 3.76 M/uL (3.80-5.20); WHITE BLOOD COUNT 6.7 K/uL (4.1-10.2)
[2017-01-16 07:02] LABS: ANION GAP 9 MEQ/L (2-14); CHLORIDE 106 MEQ/L (99-109); GFR ESTIMATE (CALCULATED) 38 mL/min/; GLUCOSE 104 mg/dL (70-99); POTASSIUM 4.2 MEQ/L (3.7-5.4); SAMPLE HEMOLYSIS CHECK 0; SAMPLE ICTERIC CHECK 0; SAMPLE LIPEMIA CHECK 0; SODIUM 140 MEQ/L (136-147)
[2017-01-16 07:03] LABS: UREA NITROGEN (BUN) 31 mg/dL (9-23)
[2017-01-16 07:47] VITALS: BP 121/69
[2017-01-16] MEDS ORDERED: ATORVASTATIN CA40 MG PO (13:29)
[2017-01-16] MEDS ORDERED: PLAVIX75 MG PO (13:29)
[2017-01-16 16:56] LABS: Estimated Average Glucose 120 mg/dL (70-123); HEMOGLOBIN A1c (GLYCOHEMOGLOB) 5.8 % HGB (Below 5.7)
== END 2017-01-16 14:37 | disposition home health service (06) | DRG 69 ==
LOC: EME → EDBD 10:27 → ENRESERV 13:08 → EDOF 13:14 → 5SOUTH 13:14 → EDOF 13:14 → ENRESERV 13:16 → 4WEST 14:48 → ENRESERV 01-13 14:47 → 4WEST 01-13 14:47 → ENRESERV 01-13 14:49 → 5SOUTH 01-13 17:15
PROVIDERS: Emergency Medicine; Hospitalist; Internal Medicine; Internal Medicine Critical Care Medicine
DX: G45.9 Transient cerebral ischemic attack, unspecified (principal); R47.01 Aphasia; E03.9 Hypothyroidism, unspecified; E11.9 Type 2 diabetes mellitus without complications; F03.90 Unspecified dementia, unspecified severity, without behavioral disturbance, psychotic disturbance, mood disturbance, and anxiety; F17.210 Nicotine dependence, cigarettes, uncomplicated; G43.111 Migraine with aura, intractable, with status migrainosus; G89.29 Other chronic pain; M54.30 Sciatica, unspecified side; I10 Essential (primary) hypertension; J44.9 Chronic obstructive pulmonary disease, unspecified; I73.9 Peripheral vascular disease, unspecified; K21.9 Gastro-esophageal reflux disease without esophagitis; M46.96 Unspecified inflammatory spondylopathy, lumbar region; M47.22 Other spondylosis with radiculopathy, cervical region; M48.00 Spinal stenosis, site unspecified; E66.9 Obesity, unspecified; Z21 Asymptomatic human immunodeficiency virus [HIV] infection status; M47.26 Other spondylosis with radiculopathy, lumbar region; Z86.73 Personal history of transient ischemic attack (TIA), and cerebral infarction without residual deficits; Z86.718 Personal history of other venous thrombosis and embolism; Z86.711 Personal history of pulmonary embolism; Q76.49 Other congenital malformations of spine, not associated with scoliosis; Z68.31 Body mass index [BMI] 31.0-31.9, adult; Z79.4 Long term (current) use of insulin; Z82.3 Family history of stroke; Z88.5 Allergy status to narcotic agent; Z88.6 Allergy status to analgesic agent; Z90.49 Acquired absence of other specified parts of digestive tract; Z90.710 Acquired absence of both cervix and uterus
CPT/HCPCS: 36415; 70450; 70496; 70498; 70551; 72141; 72148; 80048; 80053; 80061; 81003; 82150; 82948; 83036; 83690; 84484; 84999; 85025; 85025 91; 85027; 85610; 85730; 86355 90; 86359 90; 86360 90; 86480 90; 86850; 86900; 86901; 87536; 87641; 93005; 94640; 94640 76; 99202; 99281; 99285; G0480; J1170; J2060; J2405; J2997; J7030; J7050; Q0164

== ENCOUNTER 2017-01-25 15:44 | Emergency (ER) | payer OTHER ==
[~2017-01-25] VITALS: Ht 152.4 cm; Wt 71.8 kg
[~2017-01-25 15:44] MED LIST changes: +INDERAL LA120 MG PO; +LEVOTHYROXINE125 MCG PO; +MOBIC15 MG PO; +NEURONTIN100 MG PO; +PLAVIX75 MG PO; +TESSALON PERLE100 MG PO
[2017-01-25 17:25] LABS: HEMATOCRIT 40.4 % (36.0-46.0); MCH 36.1 PG (29.0-34.0); MCHC 34.4 G/DL (30.0-36.0); MCV 104.9 FL (83-99); MEAN PLAT.VOLUME 9.6 uM^3 (9.5-12.4); PLATELET COUNT 264 K/uL (156-360); RBC DIS.WIDTH-SD 46.3 % (39-53); RED BLOOD COUNT 3.85 M/uL (3.80-5.20)
[2017-01-25 17:38] LABS: CHLORIDE 111 mEq/L (99-109); SODIUM 141 mEq/L (136-147)
[2017-01-25 17:40] LABS: GLUCOSE 109 mg/dL (70-99)
[2017-01-25 17:41] LABS: ANION GAP 9 MEQ/L (2-14)
[2017-01-25 17:42] LABS: TOTAL BILIRUBIN 0.5 mg/dL (0.0-1.0)
[2017-01-25 17:44] LABS: ALKALINE PHOSPHATASE 72 IU/L (3-129); GFR ESTIMATE (CALCULATED) 49 mL/min/
[2017-01-25 17:45] LABS: UREA NITROGEN (BUN) 11 mg/dL (9-23)
[2017-01-25 17:46] LABS: TROP-I INTERPRETATION NEGATIVE; TROPONIN-I < 0.01 ng/mL (0.0-0.30)
[2017-01-25] MEDS ORDERED: LEVAQUIN750 MG PO (19:34)
[2017-01-25 19:47] LABS: TROP-I INTERPRETATION NEGATIVE; TROPONIN-I < 0.01 ng/mL (0.0-0.30)
[2017-01-25 21:02] VITALS: BP 134/86
== END 2017-01-25 21:03 | disposition left against medical advice (07) ==
LOC: EME 15:44
PROVIDERS: Physician Assistant Medical
DX: J44.0 Chronic obstructive pulmonary disease with (acute) lower respiratory infection (principal); J18.9 Pneumonia, unspecified organism; R51 Headache; R11.2 Nausea with vomiting, unspecified; R19.7 Diarrhea, unspecified; M79.604 Pain in right leg; Z86.73 Personal history of transient ischemic attack (TIA), and cerebral infarction without residual deficits; Z86.718 Personal history of other venous thrombosis and embolism; Z86.711 Personal history of pulmonary embolism; F03.90 Unspecified dementia, unspecified severity, without behavioral disturbance, psychotic disturbance, mood disturbance, and anxiety; B20 Human immunodeficiency virus [HIV] disease; F17.200 Nicotine dependence, unspecified, uncomplicated; Z53.20 Procedure and treatment not carried out because of patient's decision for unspecified reasons
CPT/HCPCS: 71020; 71275; 80053; 84484; 85027; 93005; 93971; 99281; 99285; J1100; J1956; J2405; J2930; J7644

== ENCOUNTER 2017-02-09 10:08 | Emergency (ER) | payer OTHER ==
[~2017-02-09] VITALS: Ht 152.4 cm; Wt 71.1 kg
[2017-02-09 10:16] VITALS: BP 137/90
== END 2017-02-09 12:37 | disposition home or self-care (01) ==
LOC: EME 10:08
DX: S60.221A Contusion of right hand, initial encounter (principal); W22.8XXA Striking against or struck by other objects, initial encounter; F17.200 Nicotine dependence, unspecified, uncomplicated
CPT/HCPCS: 73130; 99281; 99284

== ENCOUNTER 2017-03-08 15:44 | Emergency (ER) | payer OTHER ==
[~2017-03-08] VITALS: Ht 152.4 cm; Wt 71.3 kg
[2017-03-08 15:56] VITALS: BP 140/98
[2017-03-08] MEDS ORDERED: FLEXERIL10 MG PO (18:18)
[2017-03-08] MEDS ORDERED: LIDODERM 5% P1 PATCH TD (18:18)
[2017-03-08] MEDS ORDERED: ROBAFEN DM COU118 M1 PO (18:18)
== END 2017-03-08 18:55 | disposition home or self-care (01) ==
LOC: EME 15:44
DX: S30.0XXA Contusion of lower back and pelvis, initial encounter (principal); S70.01XA Contusion of right hip, initial encounter; R51 Headache; W10.9XXA Fall (on) (from) unspecified stairs and steps, initial encounter; R05 Cough; F03.90 Unspecified dementia, unspecified severity, without behavioral disturbance, psychotic disturbance, mood disturbance, and anxiety; J44.9 Chronic obstructive pulmonary disease, unspecified; Z86.718 Personal history of other venous thrombosis and embolism; Z86.711 Personal history of pulmonary embolism; Z86.73 Personal history of transient ischemic attack (TIA), and cerebral infarction without residual deficits; Z79.02 Long term (current) use of antithrombotics/antiplatelets; F17.200 Nicotine dependence, unspecified, uncomplicated
CPT/HCPCS: 94640; 99281; 99284

== ENCOUNTER → 2017-04-17 | Outpatient (CLI) | payer OTHER ==
[~2017-04-17] MED LIST changes: +CLOPIDOGREL75 MG PO; +GABAPENTIN300 MG PO; +OXYCODONE-APAP1 EAC6 PO; +ROBAFEN DM COU118 M1 PO; +TIZANIDINE HCL4 MG PO
[2017-04-17 16:08] LABS: APPEARANCE CLEAR/COLORLESS
[2017-04-17 16:11] LABS: RED CELL AREA COUNTED 18; RED CELL COUNT 1 /MM^3 (0-1); RED CELL DILUTION 1; WBC AREA COUNTED 18; WBC DILUTION 1; WHITE CELL COUNT 1 /MM^3 (0-5); WHITE CELL RAW COUNT 1
[2017-04-17 16:12] LABS: CSF EOSINOPHILS 0 % (0-25); MONO RAW COUNT 1; MONONUCLEAR WBC'S 100 % (50-90); POLYNUCLEAR WBC'S 0 % (0-3)
[2017-04-19 22:21] LABS: Albumin, Serum 3.3 g/dL (3.2-4.6); IgG Index, CSF 0.37 index (<0.66); Synthesis Rate IgG, CSF -6.9 mg/24 h (-9.9-3.3)
== END | disposition home or self-care (01) ==
LOC: RAD 14:23
PROVIDERS: Psychiatry & Neurology Clinical Neurophysiology
PROC: 009U3ZZ Drainage of Spinal Canal, Percutaneous Approach (ICD-10-PCS; principal; 2017-04-17)
DX: H53.8 Other visual disturbances (principal)
CPT/HCPCS: 62270; 77003; 82040 90; 82042 90; 82164 90; 82784 90; 82945; 83873 90; 83916 90; 84157; 86592 90; 87070; 87205; 87529 90; 88108; 89051

== ENCOUNTER 2017-04-21 10:33 | Emergency (ER) | payer OTHER ==
[~2017-04-21] VITALS: Ht 152.4 cm; Wt 70.6 kg
[2017-04-21 11:20] LABS: EOSINOPHIL (%) 0.9 % (0-5); EOSINOPHIL COUNT 0.1 K/uL (0-0.3); HEMATOCRIT 39.7 % (36.0-46.0); IMMATURE GRANULOCYTE (%) 0.3 % (0.0-0.7); LYMPHOCYTE COUNT 2.7 K/uL (1.0-2.8); MCHC 35.3 G/DL (30.0-36.0); MEAN PLAT.VOLUME 9.2 uM^3 (9.5-12.4); MONOCYTE COUNT 0.6 K/uL (0-0.8); NEUTROPHIL (%) 63.5 % (45-76); PLATELET COUNT 189 K/uL (156-360); RBC DIS.WIDTH-CV 13.2 % (11.8-14.6); RBC DIS.WIDTH-SD 51.1 % (39-53); RED BLOOD COUNT 3.78 M/uL (3.80-5.20); WHITE BLOOD COUNT 9.4 K/uL (4.1-10.2)
[2017-04-21 11:31] LABS: CHLORIDE 108 mEq/L (99-109); POTASSIUM 3.6 mEq/L (3.7-5.4); SODIUM 141 mEq/L (136-147)
[2017-04-21 11:33] LABS: GLUCOSE 112 mg/dL (70-99)
[2017-04-21 11:34] LABS: ANION GAP 11 MEQ/L (2-14)
[2017-04-21 11:35] LABS: TOTAL BILIRUBIN 0.7 mg/dL (0.0-1.0)
[2017-04-21 11:37] LABS: ALKALINE PHOSPHATASE 86 IU/L (3-129); GFR ESTIMATE (CALCULATED) 54 mL/min/
[2017-04-21 11:38] LABS: UREA NITROGEN (BUN) 9 mg/dL (9-23)
[2017-04-21 11:41] LABS: TROP-I INTERPRETATION NEGATIVE; TROPONIN-I < 0.01 ng/mL (0.0-0.30)
[2017-04-21] MEDS ORDERED: PREDNISONE20 MG PO (14:02)
[2017-04-21 14:44] VITALS: BP 144/84
== END 2017-04-21 14:47 | disposition home or self-care (01) ==
LOC: EME 10:33
PROVIDERS: Emergency Medicine
DX: J44.1 Chronic obstructive pulmonary disease with (acute) exacerbation (principal); R06.03 Acute respiratory distress; J06.9 Acute upper respiratory infection, unspecified; E11.9 Type 2 diabetes mellitus without complications; F03.90 Unspecified dementia, unspecified severity, without behavioral disturbance, psychotic disturbance, mood disturbance, and anxiety; F17.200 Nicotine dependence, unspecified, uncomplicated; I10 Essential (primary) hypertension; Z21 Asymptomatic human immunodeficiency virus [HIV] infection status; K21.9 Gastro-esophageal reflux disease without esophagitis; R56.9 Unspecified convulsions; F32.9 Major depressive disorder, single episode, unspecified; G89.29 Other chronic pain; F41.9 Anxiety disorder, unspecified; Z86.73 Personal history of transient ischemic attack (TIA), and cerebral infarction without residual deficits; Z86.718 Personal history of other venous thrombosis and embolism; Z88.5 Allergy status to narcotic agent; Z88.6 Allergy status to analgesic agent; Z88.2 Allergy status to sulfonamides
CPT/HCPCS: 71020; 80053; 83880; 84484; 85025; 93005; 94644; 99281; 99285; J0780; J1200; J2930; J7644

== ENCOUNTER 2017-04-28 12:08 | Emergency (ER) | payer OTHER ==
[~2017-04-28] VITALS: Ht 152.4 cm; Wt 71.4 kg
[2017-04-28 12:54] LABS: HEMATOCRIT 39.6 % (36.0-46.0); MCH 37.2 PG (29.0-34.0); MCHC 35.4 G/DL (30.0-36.0); MCV 105.3 FL (83-99); MEAN PLAT.VOLUME 9.1 uM^3 (9.5-12.4); RBC DIS.WIDTH-CV 13.3 % (11.8-14.6); RBC DIS.WIDTH-SD 52.1 % (39-53); RED BLOOD COUNT 3.76 M/uL (3.80-5.20); WHITE BLOOD COUNT 7.6 K/uL (4.1-10.2)
[2017-04-28 12:59] LABS: PLATELET COUNT 249 K/uL (156-360)
[2017-04-28 13:04] LABS: CHLORIDE 107 mEq/L (99-109); POTASSIUM 4.3 mEq/L (3.7-5.4); SODIUM 142 mEq/L (136-147)
[2017-04-28 13:06] LABS: GLUCOSE 142 mg/dL (70-99)
[2017-04-28 13:08] LABS: ANION GAP 10 MEQ/L (2-14)
[2017-04-28 13:10] LABS: GFR ESTIMATE (CALCULATED) 54 mL/min/
[2017-04-28 13:11] LABS: UREA NITROGEN (BUN) 15 mg/dL (9-23)
[2017-04-28 13:57] LABS: TROP-I INTERPRETATION NEGATIVE; TROPONIN-I < 0.01 ng/mL (0.0-0.30)
[2017-04-28] MEDS ORDERED: VENTOLIN HFA18 GM IH (15:47)
[2017-04-28] MEDS ORDERED: ZITHROMAX Z-PA250 MG PO (15:47)
[2017-04-28 16:22] VITALS: BP 132/90
== END 2017-04-28 16:23 | disposition home or self-care (01) ==
LOC: EME 12:08
PROVIDERS: Physician Assistant Medical
DX: J44.1 Chronic obstructive pulmonary disease with (acute) exacerbation (principal); F31.9 Bipolar disorder, unspecified; E11.9 Type 2 diabetes mellitus without complications; I10 Essential (primary) hypertension; G43.909 Migraine, unspecified, not intractable, without status migrainosus; K21.9 Gastro-esophageal reflux disease without esophagitis; F41.9 Anxiety disorder, unspecified; F03.90 Unspecified dementia, unspecified severity, without behavioral disturbance, psychotic disturbance, mood disturbance, and anxiety; Z86.73 Personal history of transient ischemic attack (TIA), and cerebral infarction without residual deficits; Z86.711 Personal history of pulmonary embolism; Z86.718 Personal history of other venous thrombosis and embolism; Z88.8 Allergy status to other drugs, medicaments and biological substances; Z87.891 Personal history of nicotine dependence
CPT/HCPCS: 71020; 71275; 80048; 84484; 85027; 85379; 93005; 94640; 99281; 99284; J2405; J2930; J7030

== ENCOUNTER 2017-05-16 12:11 | Emergency (ER) | payer OTHER ==
[~2017-05-16] VITALS: Ht 154.9 cm; Wt 69.6 kg
[2017-05-16] MEDS ORDERED: LEVAQUIN500 MG PO (14:31)
[2017-05-16] MEDS ORDERED: DELTASONE20 M1 PO (14:31)
[2017-05-16] MEDS ORDERED: PROAIR HFA8.5 GM IH (15:00)
[2017-05-16 15:18] VITALS: BP 119/96
== END 2017-05-16 15:19 | disposition home or self-care (01) ==
LOC: EME 12:11 → RME 12:11
DX: J44.1 Chronic obstructive pulmonary disease with (acute) exacerbation (principal); J44.0 Chronic obstructive pulmonary disease with (acute) lower respiratory infection; J20.9 Acute bronchitis, unspecified; K21.9 Gastro-esophageal reflux disease without esophagitis; I10 Essential (primary) hypertension; E11.9 Type 2 diabetes mellitus without complications; B20 Human immunodeficiency virus [HIV] disease; R56.9 Unspecified convulsions; F41.9 Anxiety disorder, unspecified; F32.9 Major depressive disorder, single episode, unspecified; F03.90 Unspecified dementia, unspecified severity, without behavioral disturbance, psychotic disturbance, mood disturbance, and anxiety; F17.200 Nicotine dependence, unspecified, uncomplicated; Z86.718 Personal history of other venous thrombosis and embolism; Z86.73 Personal history of transient ischemic attack (TIA), and cerebral infarction without residual deficits; Z90.49 Acquired absence of other specified parts of digestive tract; Z90.89 Acquired absence of other organs; Z88.2 Allergy status to sulfonamides; Z88.5 Allergy status to narcotic agent; Z88.6 Allergy status to analgesic agent; Z88.8 Allergy status to other drugs, medicaments and biological substances
CPT/HCPCS: 71020; 94640; 99281; 99283

== ENCOUNTER 2017-05-27 13:53 | Emergency (ER) | payer OTHER ==
[~2017-05-27] VITALS: Ht 152.4 cm; Wt 70.1 kg
[~2017-05-27 13:53] MED LIST changes: +DELTASONE20 M1 PO; +LEVAQUIN500 MG PO
[2017-05-27] MEDS ORDERED: TYLENOL WITH C1 EACH PO (17:06)
[2017-05-27 17:16] VITALS: BP 169/101
== END 2017-05-27 17:17 | disposition home or self-care (01) ==
LOC: EME 13:53
DX: S70.01XA Contusion of right hip, initial encounter (principal); M54.16 Radiculopathy, lumbar region; W19.XXXA Unspecified fall, initial encounter; J44.9 Chronic obstructive pulmonary disease, unspecified; I10 Essential (primary) hypertension; E78.00 Pure hypercholesterolemia, unspecified; Z79.02 Long term (current) use of antithrombotics/antiplatelets; F17.200 Nicotine dependence, unspecified, uncomplicated
CPT/HCPCS: 72131; 99281; 99283; J3010

== ENCOUNTER 2017-06-01 02:12 | Emergency (ER) | payer OTHER ==
[~2017-06-01] VITALS: Ht 152.4 cm; Wt 68.2 kg
[2017-06-01 06:30] VITALS: BP 119/86
== END 2017-06-01 06:30 | disposition home or self-care (01) ==
LOC: EME 02:12
DX: M54.41 Lumbago with sciatica, right side (principal); G89.29 Other chronic pain; I10 Essential (primary) hypertension; F17.200 Nicotine dependence, unspecified, uncomplicated; Z88.5 Allergy status to narcotic agent; Z88.2 Allergy status to sulfonamides
CPT/HCPCS: 99281; 99284; J2270

== ENCOUNTER 2017-06-14 09:53 | Emergency (ER) | payer OTHER ==
[~2017-06-14] VITALS: Ht 170.2 cm; Wt 68.1 kg
[2017-06-14] MEDS ORDERED: PERCOCET 5/31 TABLET PO (12:56)
[2017-06-14 13:45] VITALS: BP 115/81
== END 2017-06-14 13:45 | disposition home or self-care (01) ==
LOC: EME 09:53
DX: M54.41 Lumbago with sciatica, right side (principal); F17.200 Nicotine dependence, unspecified, uncomplicated; Z88.5 Allergy status to narcotic agent; Z88.2 Allergy status to sulfonamides; Z88.6 Allergy status to analgesic agent; Z88.8 Allergy status to other drugs, medicaments and biological substances
CPT/HCPCS: 99281; 99284; J8540

== ENCOUNTER 2017-06-17 09:57 | Emergency (ER) | payer OTHER ==
[~2017-06-17] VITALS: Ht 152.4 cm; Wt 68.0 kg
[2017-06-17 14:51] VITALS: BP 112/86
== END 2017-06-17 14:50 | disposition home or self-care (01) ==
LOC: EME 09:57
DX: S70.01XA Contusion of right hip, initial encounter (principal); S06.9X0A Unspecified intracranial injury without loss of consciousness, initial encounter; W01.0XXA Fall on same level from slipping, tripping and stumbling without subsequent striking against object, initial encounter; Z86.73 Personal history of transient ischemic attack (TIA), and cerebral infarction without residual deficits; J44.9 Chronic obstructive pulmonary disease, unspecified; F31.9 Bipolar disorder, unspecified; Z86.718 Personal history of other venous thrombosis and embolism; K21.9 Gastro-esophageal reflux disease without esophagitis; I10 Essential (primary) hypertension; F41.9 Anxiety disorder, unspecified; F32.9 Major depressive disorder, single episode, unspecified; F03.90 Unspecified dementia, unspecified severity, without behavioral disturbance, psychotic disturbance, mood disturbance, and anxiety; E11.9 Type 2 diabetes mellitus without complications; Z86.711 Personal history of pulmonary embolism; Z88.2 Allergy status to sulfonamides; F17.200 Nicotine dependence, unspecified, uncomplicated; M54.5 Low back pain; R51 Headache
CPT/HCPCS: 70450; 72100; 73502; 93005; 99281; 99284; J3010

== ENCOUNTER 2017-06-20 14:51 | Emergency (ER) | payer OTHER ==
[~2017-06-20] VITALS: Ht 152.4 cm; Wt 67.0 kg
[2017-06-20] MEDS ORDERED: FLEXERIL5 MG PO (17:52)
[2017-06-20] MEDS ORDERED: NORCO 5/3251 TABLET PO (17:52)
[2017-06-20] MEDS ORDERED: MEDROL DOSEPAK4 MG PO (17:52)
[2017-06-20 18:02] VITALS: BP 128/81
== END 2017-06-20 18:02 | disposition home or self-care (01) ==
LOC: EME 14:51
DX: M54.31 Sciatica, right side (principal); R11.10 Vomiting, unspecified; R19.7 Diarrhea, unspecified; K21.9 Gastro-esophageal reflux disease without esophagitis; I10 Essential (primary) hypertension; E11.9 Type 2 diabetes mellitus without complications; J44.9 Chronic obstructive pulmonary disease, unspecified; B20 Human immunodeficiency virus [HIV] disease; F41.9 Anxiety disorder, unspecified; F03.90 Unspecified dementia, unspecified severity, without behavioral disturbance, psychotic disturbance, mood disturbance, and anxiety; F32.9 Major depressive disorder, single episode, unspecified; F17.200 Nicotine dependence, unspecified, uncomplicated; Z79.891 Long term (current) use of opiate analgesic; Z86.711 Personal history of pulmonary embolism; Z86.718 Personal history of other venous thrombosis and embolism; Z86.73 Personal history of transient ischemic attack (TIA), and cerebral infarction without residual deficits; Z90.49 Acquired absence of other specified parts of digestive tract; Z90.89 Acquired absence of other organs; Z88.5 Allergy status to narcotic agent; Z88.6 Allergy status to analgesic agent; Z88.2 Allergy status to sulfonamides; Z88.8 Allergy status to other drugs, medicaments and biological substances
CPT/HCPCS: 87502; 99281; 99284

== ENCOUNTER 2017-07-22 20:33 | Inpatient (IN) | payer OTHER ==
[~2017-07-22] VITALS: Ht 152.4 cm; Wt 74.5 kg
[~2017-07-22 20:33] MED LIST changes: +FLEXERIL5 MG PO
[2017-07-22 21:23] LABS: BASOPHIL (%) 0.4 % (0-1); EOSINOPHIL (%) 1.5 % (0-5); EOSINOPHIL COUNT 0.1 K/uL (0-0.3); HEMATOCRIT 41.1 % (36.0-46.0); HEMOGLOBIN 14.7 G/DL (11.9-15.5); IMMATURE GRANULOCYTE (%) 0.1 % (0.0-0.7); LYMPHOCYTE (%) 46.8 % (15-42); LYMPHOCYTE COUNT 3.5 K/uL (1.0-2.8); MCH 36.8 PG (29.0-34.0); MCHC 35.8 G/DL (30.0-36.0); MCV 102.8 FL (83-99); MONOCYTE (%) 7.8 % (3-12); MONOCYTE COUNT 0.6 K/uL (0-0.8); NEUTROPHIL (%) 43.4 % (45-76); NEUTROPHIL COUNT 3.2 K/uL (1.8-6.4); PLATELET COUNT 292 K/uL (156-360); RBC DIS.WIDTH-CV 11.6 % (11.8-14.6); RBC DIS.WIDTH-SD 44.2 % (39-53); WHITE BLOOD COUNT 7.4 K/uL (4.1-10.2)
[2017-07-22 21:32] LABS: ALBUMIN 3.9 g/dL (3.2-4.8)
[2017-07-22 21:33] LABS: CHLORIDE 106 mEq/L (99-109); POTASSIUM 3.6 mEq/L (3.7-5.4); SODIUM 139 mEq/L (136-147)
[2017-07-22 21:35] LABS: GLUCOSE 112 mg/dL (70-99); TOTAL PROTEIN 6.9 g/dL (6.4-8.3)
[2017-07-22 21:37] LABS: TOTAL BILIRUBIN 0.4 mg/dL (0.0-1.0)
[2017-07-22 21:38] LABS: ALKALINE PHOSPHATASE 119 IU/L (3-129)
[2017-07-22 21:39] LABS: CREATININE 1.2 mg/dL (0.6-1.3); GFR ESTIMATE (CALCULATED) 49 mL/min/
[2017-07-22 21:40] LABS: AST (GOT) 18 IU/L (2-34); UREA NITROGEN (BUN) 12 mg/dL (9-23)
[2017-07-22 21:42] LABS: ALT (GPT) 12 IU/L (3-49); LIPASE 27 U/L (1.0-51.0)
[2017-07-22 22:01] LABS: APPEARANCE CLOUDY ((CLEAR)); BILIRUBIN NEGATIVE; BLOOD NEGATIVE; COLOR YELLOW ((YELLOW)); GLUCOSE (STRIP) NEGATIVE; KETONES NEGATIVE; LEUKOCYTES NEGATIVE; NITRITE NEGATIVE; PROTEIN (STRIP) NEGATIVE; UROBILINOGEN 0.2 MG/DL (0.2-1.0)
[2017-07-22 22:24] LABS: BACTERIA 1+ /HPF; EPITHELIAL CELLS 4+ /HPF; MUCUS NONE SEEN /LPF; RED BLOOD CELLS 0-5 /HPF (0-5); UCUL ADDED? NO; WHITE BLOOD CELLS 0-5 /HPF (0-5)
[2017-07-22 23:06] LABS: CHLORIDE 104 mEq/L (99-109); POTASSIUM 3.7 mEq/L (3.7-5.4); SODIUM 138 mEq/L (136-147)
[2017-07-22 23:08] LABS: GLUCOSE 101 mg/dL (70-99)
[2017-07-22 23:11] LABS: CREATININE 1.2 mg/dL (0.6-1.3); GFR ESTIMATE (CALCULATED) 49 mL/min/
[2017-07-22 23:12] LABS: UREA NITROGEN (BUN) 12 mg/dL (9-23)
[2017-07-22] MEDS ORDERED: ATORVASTATIN CA40 MG PO (23:38)
[2017-07-22] MEDS ORDERED: PLAVIX75 MG PO (23:38)
[2017-07-22] MEDS ORDERED: VITAMIN D31000 UNIT PO (23:39)
[2017-07-22] MEDS ORDERED: TYLENOL ARTHRI650 MG PO (23:40)
[2017-07-23 02:39] VITALS: BP 136/102
[2017-07-23 07:56] LABS: INTACT PARATHYROID HORMONE 366 pg/mL (10-69)
[2017-07-23 08:18] VITALS: BP 125/80
[2017-07-23 08:28] LABS: THYROTROPIN (TSH) 8.1 MIU/L (0.4-5.5)
[2017-07-23 10:59] LABS: ALBUMIN 3.2 G/DL (3.2-4.8); ALKALINE PHOSPHATASE 81 IU/L (3-129); ALT (GPT) 9 IU/L (3-49); AST (GOT) 14 IU/L (2-34); CHLORIDE 109 MEQ/L (99-109); GFR ESTIMATE (CALCULATED) > 59 mL/min/; GLUCOSE 103 mg/dL (70-99); POTASSIUM 3.9 MEQ/L (3.7-5.4); SODIUM 142 MEQ/L (136-147); TOTAL BILIRUBIN 0.4 MG/DL (0.0-1.0); TOTAL PROTEIN 5.1 G/DL (6.4-8.3); UREA NITROGEN (BUN) 9 mg/dL (9-23)
[2017-07-23 11:46] VITALS: BP 121/80
[2017-07-23 12:02] LABS: PHOSPHORUS 2.5 mg/dL (2.5-4.9)
[2017-07-23 15:56] VITALS: BP 122/80
[2017-07-24] VITALS: BP 140/98
[2017-07-24 07:47] LABS: BASOPHIL (%) 0.2 % (0-1); EOSINOPHIL (%) 3.8 % (0-5); EOSINOPHIL COUNT 0.2 K/uL (0-0.3); HEMATOCRIT 35.2 % (36.0-46.0); IMMATURE GRANULOCYTE (%) 0.2 % (0.0-0.7); LYMPHOCYTE COUNT 3.3 K/uL (1.0-2.8); MCH 36.7 PG (29.0-34.0); MCHC 34.7 G/DL (30.0-36.0); MONOCYTE (%) 7.1 % (3-12); MONOCYTE COUNT 0.3 K/uL (0-0.8); NEUTROPHIL (%) 19.7 % (45-76); NEUTROPHIL COUNT 0.9 K/uL (1.8-6.4); PLATELET COUNT 245 K/uL (156-360); RBC DIS.WIDTH-CV 11.9 % (11.8-14.6); RBC DIS.WIDTH-SD 46.4 % (39-53); RED BLOOD COUNT 3.32 M/uL (3.80-5.20); WHITE BLOOD COUNT 4.8 K/uL (4.1-10.2)
[2017-07-24 07:48] LABS: HEMOGLOBIN 12.2 G/DL (11.9-15.5)
[2017-07-24 08:17] LABS: ALBUMIN 3.4 G/DL (3.2-4.8); ALKALINE PHOSPHATASE 83 IU/L (3-129); ALT (GPT) 8 IU/L (3-49); AST (GOT) 14 IU/L (2-34); CHLORIDE 108 MEQ/L (99-109); CREATININE 1.1 MG/DL (0.6-1.3); GFR ESTIMATE (CALCULATED) 54 mL/min/; GLUCOSE 94 mg/dL (70-99); POTASSIUM 4.4 MEQ/L (3.7-5.4); SODIUM 140 MEQ/L (136-147); TOTAL PROTEIN 5.6 G/DL (6.4-8.3); UREA NITROGEN (BUN) 10 mg/dL (9-23)
[2017-07-24 08:18] LABS: TOTAL BILIRUBIN 0.5 MG/DL (0.0-1.0)
[2017-07-24 08:20] VITALS: BP 127/73
[2017-07-24 11:50] VITALS: BP 122/70
[2017-07-24 15:45] VITALS: BP 167/94
[2017-07-24 16:41] LABS: CHLORIDE 107 MEQ/L (99-109); CREATININE 1.1 MG/DL (0.6-1.3); GFR ESTIMATE (CALCULATED) 54 mL/min/; GLUCOSE 91 mg/dL (70-99); SODIUM 141 MEQ/L (136-147); UREA NITROGEN (BUN) 11 mg/dL (9-23)
[2017-07-24 23:10] VITALS: BP 140/75
[2017-07-25 01:21] LABS: CHLORIDE 107 mEq/L (99-109); POTASSIUM 3.9 mEq/L (3.7-5.4); SODIUM 140 mEq/L (136-147)
[2017-07-25 01:23] LABS: GLUCOSE 130 mg/dL (70-99)
[2017-07-25 01:27] LABS: CREATININE 1.1 mg/dL (0.6-1.3); GFR ESTIMATE (CALCULATED) 54 mL/min/
[2017-07-25 01:28] LABS: UREA NITROGEN (BUN) 9 mg/dL (9-23)
[2017-07-25 08:00] VITALS: BP 129/74
[2017-07-25 08:27] LABS: CHLORIDE 109 MEQ/L (99-109); GFR ESTIMATE (CALCULATED) > 59 mL/min/; GLUCOSE 105 mg/dL (70-99); POTASSIUM 4.2 MEQ/L (3.7-5.4); SODIUM 140 MEQ/L (136-147); UREA NITROGEN (BUN) 10 mg/dL (9-23)
[2017-07-25 15:00] VITALS: BP 166/98
[2017-07-25 17:07] LABS: CHLORIDE 109 MEQ/L (99-109); GFR ESTIMATE (CALCULATED) > 59 mL/min/; GLUCOSE 112 mg/dL (70-99); POTASSIUM 4.3 MEQ/L (3.7-5.4); SODIUM 140 MEQ/L (136-147); UREA NITROGEN (BUN) 10 mg/dL (9-23)
[2017-07-25 23:55] VITALS: BP 119/71
[2017-07-26] VITALS (7 sets, daily range): BP systolic 67–140; BP diastolic 44–85
[2017-07-26 00:58] LABS: CHLORIDE 109 mEq/L (99-109); POTASSIUM 4.1 mEq/L (3.7-5.4); SODIUM 138 mEq/L (136-147)
[2017-07-26 01:00] LABS: GLUCOSE 112 mg/dL (70-99)
[2017-07-26 01:04] LABS: CREATININE 0.9 mg/dL (0.6-1.3); GFR ESTIMATE (CALCULATED) > 59 mL/min/
[2017-07-26 01:05] LABS: UREA NITROGEN (BUN) 10 mg/dL (9-23)
[2017-07-26 07:49] LABS: HEMOGLOBIN 12.8 G/DL (11.9-15.5); MCHC 34.6 G/DL (30.0-36.0); MCV 103.9 FL (83-99); PLATELET COUNT 242 K/uL (156-360); RBC DIS.WIDTH-CV 11.8 % (11.8-14.6); RED BLOOD COUNT 3.56 M/uL (3.80-5.20); WHITE BLOOD COUNT 6.5 K/uL (4.1-10.2)
[2017-07-26 08:21] LABS: CHLORIDE 107 MEQ/L (99-109); GFR ESTIMATE (CALCULATED) > 59 mL/min/; GLUCOSE 105 mg/dL (70-99); SODIUM 136 MEQ/L (136-147); UREA NITROGEN (BUN) 11 mg/dL (9-23)
[2017-07-27 00:20] VITALS: BP 123/67
[2017-07-27 06:38] LABS: HEMATOCRIT 38.3 % (36.0-46.0); HEMOGLOBIN 13.4 G/DL (11.9-15.5); MCH 36.5 PG (29.0-34.0); MCV 104.4 FL (83-99); PLATELET COUNT 239 K/uL (156-360); RBC DIS.WIDTH-CV 11.8 % (11.8-14.6); RBC DIS.WIDTH-SD 45.2 % (39-53); RED BLOOD COUNT 3.67 M/uL (3.80-5.20); WHITE BLOOD COUNT 9.5 K/uL (4.1-10.2)
[2017-07-27 07:12] LABS: CHLORIDE 114 MEQ/L (99-109); CREATININE 1.1 MG/DL (0.6-1.3); GFR ESTIMATE (CALCULATED) 54 mL/min/; GLUCOSE 148 mg/dL (70-99); POTASSIUM 3.9 MEQ/L (3.7-5.4); UREA NITROGEN (BUN) 12 mg/dL (9-23)
[2017-07-27 07:13] LABS: SODIUM 144 MEQ/L (136-147)
[2017-07-27 07:20] VITALS: BP 111/73
[2017-07-27 12:55] LABS: TREPONEMA ANTIBODY NEGATIVE (NEGATIVE)
[2017-07-27 16:14] VITALS: BP 102/74
[2017-07-27 23:30] VITALS: BP 152/73
[2017-07-28 07:06] LABS: CHLORIDE 113 MEQ/L (99-109); CREATININE 0.8 MG/DL (0.6-1.3); GFR ESTIMATE (CALCULATED) > 59 mL/min/; GLUCOSE 156 mg/dL (70-99); SODIUM 143 MEQ/L (136-147); UREA NITROGEN (BUN) 8 mg/dL (9-23)
[2017-07-28 07:09] LABS: POTASSIUM 3.1 MEQ/L (3.7-5.4)
[2017-07-28 07:13] VITALS: BP 128/80
[2017-07-28 15:18] VITALS: BP 127/68
[2017-07-28 20:00] VITALS: BP 125/78
[2017-07-28 23:53] VITALS: BP 109/75
[2017-07-29 06:03] LABS: HEMATOCRIT 33.7 % (36.0-46.0); HEMOGLOBIN 12.2 G/DL (11.9-15.5); MCH 36.6 PG (29.0-34.0); MCHC 36.2 G/DL (30.0-36.0); MCV 101.2 FL (83-99); PLATELET COUNT 210 K/uL (156-360); RBC DIS.WIDTH-CV 11.9 % (11.8-14.6); RED BLOOD COUNT 3.33 M/uL (3.80-5.20); WHITE BLOOD COUNT 11.6 K/uL (4.1-10.2)
[2017-07-29 06:39] LABS: ALBUMIN 3.5 G/DL (3.2-4.8); CHLORIDE 107 MEQ/L (99-109); CREATININE 0.8 MG/DL (0.6-1.3); GFR ESTIMATE (CALCULATED) > 59 mL/min/; GLUCOSE 100 mg/dL (70-99); PHOSPHORUS 1.7 mg/dL (2.5-4.9); SODIUM 139 MEQ/L (136-147); UREA NITROGEN (BUN) 5 mg/dL (9-23)
[2017-07-29 07:47] VITALS: BP 105/63
[2017-07-29 15:20] VITALS: BP 104/68
[2017-07-29 23:13] VITALS: BP 114/64
[2017-07-30 06:32] LABS: HEMATOCRIT 36.3 % (36.0-46.0); HEMOGLOBIN 12.8 G/DL (11.9-15.5); MCH 36.8 PG (29.0-34.0); MCHC 35.3 G/DL (30.0-36.0); MCV 104.3 FL (83-99); PLATELET COUNT 206 K/uL (156-360); RBC DIS.WIDTH-CV 12.4 % (11.8-14.6); RBC DIS.WIDTH-SD 47.7 % (39-53); RED BLOOD COUNT 3.48 M/uL (3.80-5.20)
[2017-07-30 07:16] LABS: CHLORIDE 104 MEQ/L (99-109); CREATININE 1.1 MG/DL (0.6-1.3); GFR ESTIMATE (CALCULATED) 54 mL/min/; GLUCOSE 123 mg/dL (70-99); MAGNESIUM 1.3 mg/dl (1.3-2.7); POTASSIUM 3.9 MEQ/L (3.7-5.4); SODIUM 140 MEQ/L (136-147); UREA NITROGEN (BUN) 13 mg/dL (9-23)
[2017-07-30 07:23] VITALS: BP 124/61
[2017-07-30 09:35] LABS: THYROTROPIN (TSH) 5.8 MIU/L (0.4-5.5)
[2017-07-30 15:19] VITALS: BP 105/65
[2017-07-31 00:12] VITALS: BP 108/64
[2017-07-31 06:52] LABS: BASOPHIL (%) 0.4 % (0-1); EOSINOPHIL (%) 1.7 % (0-5); EOSINOPHIL COUNT 0.1 K/uL (0-0.3); HEMATOCRIT 32.1 % (36.0-46.0); HEMOGLOBIN 11.1 G/DL (11.9-15.5); IMMATURE GRANULOCYTE (%) 0.4 % (0.0-0.7); LYMPHOCYTE (%) 45.4 % (15-42); LYMPHOCYTE COUNT 3.3 K/uL (1.0-2.8); MCH 35.8 PG (29.0-34.0); MCHC 34.6 G/DL (30.0-36.0); MCV 103.5 FL (83-99); MONOCYTE (%) 8.3 % (3-12); MONOCYTE COUNT 0.6 K/uL (0-0.8); NEUTROPHIL (%) 43.8 % (45-76); NEUTROPHIL COUNT 3.2 K/uL (1.8-6.4); PLATELET COUNT 214 K/uL (156-360); RBC DIS.WIDTH-CV 12.2 % (11.8-14.6); WHITE BLOOD COUNT 7.2 K/uL (4.1-10.2)
[2017-07-31 07:22] LABS: ALBUMIN 3.3 G/DL (3.2-4.8); ALKALINE PHOSPHATASE 83 IU/L (3-129); ALT (GPT) 13 IU/L (3-49); AST (GOT) 14 IU/L (2-34); CHLORIDE 107 MEQ/L (99-109); CREATININE 1.1 MG/DL (0.6-1.3); GFR ESTIMATE (CALCULATED) 54 mL/min/; GLUCOSE 117 mg/dL (70-99); POTASSIUM 3.4 MEQ/L (3.7-5.4); SODIUM 140 MEQ/L (136-147); TOTAL BILIRUBIN 0.4 MG/DL (0.0-1.0); TOTAL PROTEIN 5.6 G/DL (6.4-8.3); UREA NITROGEN (BUN) 13 mg/dL (9-23)
[2017-07-31 08:00] VITALS: BP 120/76
[2017-07-31 15:15] VITALS: BP 118/58
[2017-07-31 19:36] LABS: CHLORIDE 109 MEQ/L (99-109); CREATININE 1.1 MG/DL (0.6-1.3); GFR ESTIMATE (CALCULATED) 54 mL/min/; GLUCOSE 111 mg/dL (70-99); POTASSIUM 3.5 MEQ/L (3.7-5.4); SODIUM 143 MEQ/L (136-147); UREA NITROGEN (BUN) 12 mg/dL (9-23)
[2017-08-01 07:47] VITALS: BP 116/67
[2017-08-01 09:54] LABS: CHLORIDE 107 MEQ/L (99-109); GFR ESTIMATE (CALCULATED) > 59 mL/min/; GLUCOSE 144 mg/dL (70-99); POTASSIUM 3.1 MEQ/L (3.7-5.4); SODIUM 143 MEQ/L (136-147); UREA NITROGEN (BUN) 12 mg/dL (9-23)
[2017-08-01 14:03] VITALS: BP 130/82
[2017-08-01 16:00] VITALS: BP 132/72
[2017-08-01 19:47] VITALS: BP 134/74
[2017-08-01 23:46] VITALS: BP 138/78
[2017-08-02 04:00] VITALS: BP 162/80
[2017-08-02 05:26] LABS: CHLORIDE 108 MEQ/L (99-109); CREATININE 0.8 MG/DL (0.6-1.3); GFR ESTIMATE (CALCULATED) > 59 mL/min/; GLUCOSE 109 mg/dL (70-99); SODIUM 139 MEQ/L (136-147); UREA NITROGEN (BUN) 13 mg/dL (9-23)
[2017-08-02 05:29] LABS: POTASSIUM 3.8 MEQ/L (3.7-5.4)
[2017-08-02 07:32] VITALS: BP 143/71
[2017-08-02] MEDS ORDERED: SENSIPAR60 MG PO (11:33)
[2017-08-02 11:49] VITALS: BP 132/72
[2017-08-02 15:30] VITALS: BP 140/67
[2017-08-03 05:02] LABS: HEMOGLOBIN 11.7 G/DL (11.9-15.5); MCH 36.4 PG (29.0-34.0); MCHC 35.5 G/DL (30.0-36.0); MCV 102.8 FL (83-99); PLATELET COUNT 258 K/uL (156-360); RBC DIS.WIDTH-CV 11.9 % (11.8-14.6); RBC DIS.WIDTH-SD 45.2 % (39-53); RED BLOOD COUNT 3.21 M/uL (3.80-5.20); WHITE BLOOD COUNT 7.4 K/uL (4.1-10.2)
[2017-08-03 08:23] VITALS: BP 115/64
[2017-08-03 15:57] VITALS: BP 108/52
[2017-08-03 23:59] VITALS: BP 73/43
[2017-08-04 07:40] VITALS: BP 148/76
[2017-08-04 11:32] VITALS: BP 91/58
[2017-08-04] MEDS ORDERED: SENSIPAR30 MG PO (12:42)
[2017-08-04 13:17] VITALS: BP 108/62
[2017-08-04 14:23] VITALS: BP 110/68
== END 2017-08-04 15:14 | disposition home health service (06) | DRG 643 ==
LOC: EME → EDBD 20:33 → EDOF 23:19 → ENRESERV 23:22 → EDOF 23:31 → 2EAST 23:31 → EDOF 23:31 → ENRESERV 23:33 → 2EAST 07-23 02:15 → ENRESERV 08-01 10:54 → 3EAST 08-01 13:17
PROVIDERS: Emergency Medicine; Hospitalist; Internal Medicine; Internal Medicine Nephrology; Physician Assistant; Physician Assistant Medical; Student in an Organized Health Care Education/Training Program
DX: E21.0 Primary hyperparathyroidism (principal); B20 Human immunodeficiency virus [HIV] disease; I69.351 Hemiplegia and hemiparesis following cerebral infarction affecting right dominant side; F05 Delirium due to known physiological condition; G35 Multiple sclerosis; F31.9 Bipolar disorder, unspecified; F43.20 Adjustment disorder, unspecified; F17.210 Nicotine dependence, cigarettes, uncomplicated; I10 Essential (primary) hypertension; I25.10 Atherosclerotic heart disease of native coronary artery without angina pectoris; J44.9 Chronic obstructive pulmonary disease, unspecified; R32 Unspecified urinary incontinence; G89.29 Other chronic pain; G40.909 Epilepsy, unspecified, not intractable, without status epilepticus; E86.0 Dehydration; E78.5 Hyperlipidemia, unspecified; D53.9 Nutritional anemia, unspecified; E03.9 Hypothyroidism, unspecified; E04.1 Nontoxic single thyroid nodule; E11.9 Type 2 diabetes mellitus without complications; E87.6 Hypokalemia; F02.80 Dementia in other diseases classified elsewhere, unspecified severity, without behavioral disturbance, psychotic disturbance, mood disturbance, and anxiety; G43.809 Other migraine, not intractable, without status migrainosus; F41.9 Anxiety disorder, unspecified; M54.12 Radiculopathy, cervical region; M54.16 Radiculopathy, lumbar region; E53.8 Deficiency of other specified B group vitamins; Z79.02 Long term (current) use of antithrombotics/antiplatelets; Z86.711 Personal history of pulmonary embolism; Z86.718 Personal history of other venous thrombosis and embolism; Z90.710 Acquired absence of both cervix and uterus; Z87.01 Personal history of pneumonia (recurrent); Z88.5 Allergy status to narcotic agent; Z88.6 Allergy status to analgesic agent; Z91.14 Patient's other noncompliance with medication regimen; Z79.51 Long term (current) use of inhaled steroids; Z79.82 Long term (current) use of aspirin; Z80.0 Family history of malignant neoplasm of digestive organs; Z80.1 Family history of malignant neoplasm of trachea, bronchus and lung; Z80.52 Family history of malignant neoplasm of bladder; Z82.3 Family history of stroke; Z82.5 Family history of asthma and other chronic lower respiratory diseases
CPT/HCPCS: 70450; 71046; 71250; 74177; 76536; 78070; 80047; 80048; 80048 91; 80053; 80069; 81003; 82140; 82306; 82310; 82330; 82607; 82948; 83690; 83735; 83970; 84100; 84439; 84443; 85025; 85027; 86780; 87040; 87081; 87086; 87493; 87801; 93005; 97530 GO; 97530 GP; 99202; 99281; 99284; A9500; J0630; J0696; J1200; J1650; J1815; J2060; J2270; J2405; J3370; J3420; J3475; J3480; J3489; J7030; J7042; J7050; Q0164

== ENCOUNTER 2017-09-09 13:02 | Inpatient (IN) | payer OTHER ==
[~2017-09-09] VITALS: Ht 152.4 cm; Wt 66.0 kg
[~2017-09-09 13:02] MED LIST changes: -LEVOTHYROXINE125 MCG PO; +LUNESTA2 MG PO; +SENSIPAR30 MG PO; +SENSIPAR60 MG PO; +TYLENOL ARTHRI650 MG PO
[2017-09-09 14:23] LABS: BASOPHIL (%) 0.2 % (0-1); EOSINOPHIL (%) 0.5 % (0-5); HEMATOCRIT 39.4 % (36.0-46.0); HEMOGLOBIN 13.9 G/DL (11.9-15.5); IMMATURE GRANULOCYTE (%) 0.3 % (0.0-0.7); LYMPHOCYTE (%) 24.7 % (15-42); LYMPHOCYTE COUNT 1.5 K/uL (1.0-2.8); MCHC 35.3 G/DL (30.0-36.0); MCV 102.1 FL (83-99); MONOCYTE (%) 5.4 % (3-12); MONOCYTE COUNT 0.3 K/uL (0-0.8); NEUTROPHIL (%) 68.9 % (45-76); NEUTROPHIL COUNT 4.1 K/uL (1.8-6.4); PLATELET COUNT 252 K/uL (156-360); RBC DIS.WIDTH-CV 11.9 % (11.8-14.6); RBC DIS.WIDTH-SD 44.6 % (39-53); RED BLOOD COUNT 3.86 M/uL (3.80-5.20); WHITE BLOOD COUNT 5.9 K/uL (4.1-10.2)
[2017-09-09 14:33] LABS: CHLORIDE 104 mEq/L (99-109); POTASSIUM 4.1 mEq/L (3.7-5.4); SODIUM 138 mEq/L (136-147)
[2017-09-09 14:35] LABS: GLUCOSE 104 mg/dL (70-99)
[2017-09-09 14:36] LABS: TOTAL PROTEIN 7.1 g/dL (6.4-8.3)
[2017-09-09 14:37] LABS: TOTAL BILIRUBIN 0.3 mg/dL (0.0-1.0)
[2017-09-09 14:39] LABS: ALKALINE PHOSPHATASE 116 IU/L (3-129); CREATININE 1.2 mg/dL (0.6-1.3); GFR ESTIMATE (CALCULATED) 49 mL/min/
[2017-09-09 14:40] LABS: UREA NITROGEN (BUN) 20 mg/dL (9-23)
[2017-09-09 14:41] LABS: AST (GOT) 20 IU/L (2-34)
[2017-09-09 14:42] LABS: ALT (GPT) 18 IU/L (3-49); LIPASE 27 U/L (1.0-51.0)
[2017-09-09 16:26] LABS: APPEARANCE SL.HAZY ((CLEAR)); BILIRUBIN NEGATIVE; BLOOD NEGATIVE; COLOR YELLOW ((YELLOW)); GLUCOSE (STRIP) NEGATIVE; KETONES NEGATIVE; LEUKOCYTES NEGATIVE; NITRITE NEGATIVE; PROTEIN (STRIP) 30; SPECIFIC GRAVITY 1.023 (1.000-1.030); UROBILINOGEN 0.2 MG/DL (0.2-1.0)
[2017-09-09 16:36] LABS: BACTERIA NONE SEEN /HPF; EPITHELIAL CELLS 1+ /HPF; HYALINE CASTS 0-5 /LPF; MUCUS 2+ /LPF; UCUL ADDED? NO; WHITE BLOOD CELLS 0-5 /HPF (0-5)
[2017-09-09] MEDS ORDERED: COMPAZINE10 MG PO (17:48)
[2017-09-09] MEDS ORDERED: VITAMIN D31000 UNIT PO (17:50)
[2017-09-09] MEDS ORDERED: SEROQUEL12.5 MG PO ×2 (17:51)
[2017-09-09 21:46] VITALS: BP 135/74
[2017-09-10 00:47] VITALS: BP 81/55
[2017-09-10 06:45] LABS: HEMOGLOBIN 11.1 G/DL (11.9-15.5); MCH 35.1 PG (29.0-34.0); MCHC 33.6 G/DL (30.0-36.0); MCV 104.4 FL (83-99); PLATELET COUNT 218 K/uL (156-360); RED BLOOD COUNT 3.16 M/uL (3.80-5.20); WHITE BLOOD COUNT 5.6 K/uL (4.1-10.2)
[2017-09-10 07:05] LABS: CHLORIDE 115 MEQ/L (99-109); CREATININE 1.1 MG/DL (0.6-1.3); GFR ESTIMATE (CALCULATED) 54 mL/min/; GLUCOSE 152 mg/dL (70-99); SODIUM 143 MEQ/L (136-147); UREA NITROGEN (BUN) 22 mg/dL (9-23)
[2017-09-10 07:47] VITALS: BP 91/62
[2017-09-10 16:57] VITALS: BP 86/52
[2017-09-10 18:29] LABS: C DIFF TOXIN NEGATIVE (NEGATIVE)
[2017-09-11 01:12] VITALS: BP 106/58
[2017-09-11 08:36] VITALS: BP 135/97
[2017-09-11 08:37] LABS: HEMATOCRIT 32.5 % (36.0-46.0); HEMOGLOBIN 11.2 G/DL (11.9-15.5); MCH 35.9 PG (29.0-34.0); MCHC 34.5 G/DL (30.0-36.0); MCV 104.2 FL (83-99); PLATELET COUNT 229 K/uL (156-360); RBC DIS.WIDTH-CV 12.3 % (11.8-14.6); RBC DIS.WIDTH-SD 47.7 % (39-53); RED BLOOD COUNT 3.12 M/uL (3.80-5.20); WHITE BLOOD COUNT 16.1 K/uL (4.1-10.2)
[2017-09-11 09:01] LABS: CHLORIDE 114 MEQ/L (99-109); CREATININE 1.1 MG/DL (0.6-1.3); GFR ESTIMATE (CALCULATED) 54 mL/min/; GLUCOSE 187 mg/dL (70-99); POTASSIUM 3.5 MEQ/L (3.7-5.4); SODIUM 143 MEQ/L (136-147); UREA NITROGEN (BUN) 19 mg/dL (9-23)
[2017-09-11 16:00] VITALS: BP 122/68
[2017-09-11 23:19] VITALS: BP 129/73
[2017-09-12 05:43] LABS: BASOPHIL (%) 0.2 % (0-1); EOSINOPHIL (%) 0 % (0-5); HEMATOCRIT 31.6 % (36.0-46.0); HEMOGLOBIN 10.8 G/DL (11.9-15.5); IMMATURE GRANULOCYTE (%) 1.2 % (0.0-0.7); LYMPHOCYTE (%) 12.8 % (15-42); LYMPHOCYTE COUNT 1.7 K/uL (1.0-2.8); MCH 35.9 PG (29.0-34.0); MCHC 34.2 G/DL (30.0-36.0); MONOCYTE (%) 5.5 % (3-12); MONOCYTE COUNT 0.7 K/uL (0-0.8); NEUTROPHIL (%) 80.3 % (45-76); NEUTROPHIL COUNT 10.5 K/uL (1.8-6.4); PLATELET COUNT 217 K/uL (156-360); RBC DIS.WIDTH-CV 12.6 % (11.8-14.6); RBC DIS.WIDTH-SD 49.1 % (39-53); RED BLOOD COUNT 3.01 M/uL (3.80-5.20)
[2017-09-12 06:33] LABS: CHLORIDE 111 MEQ/L (99-109); GFR ESTIMATE (CALCULATED) > 59 mL/min/; GLUCOSE 122 mg/dL (70-99); SODIUM 144 MEQ/L (136-147); UREA NITROGEN (BUN) 17 mg/dL (9-23)
[2017-09-12 06:37] LABS: POTASSIUM 4.5 MEQ/L (3.7-5.4)
[2017-09-12 07:17] VITALS: BP 139/80
[2017-09-12 16:27] VITALS: BP 128/73
[2017-09-12 23:45] VITALS: BP 128/69
[2017-09-13 06:00] LABS: HEMATOCRIT 32.3 % (36.0-46.0); MCH 35.5 PG (29.0-34.0); MCHC 34.1 G/DL (30.0-36.0); MCV 104.2 FL (83-99); NRBC (%) 0.3 /100 WBC (0-0); PLATELET COUNT 206 K/uL (156-360); RBC DIS.WIDTH-CV 12.7 % (11.8-14.6); WHITE BLOOD COUNT 6.1 K/uL (4.1-10.2)
[2017-09-13 06:21] LABS: CHLORIDE 108 MEQ/L (99-109); GFR ESTIMATE (CALCULATED) > 59 mL/min/; GLUCOSE 159 mg/dL (70-99); POTASSIUM 4.2 MEQ/L (3.7-5.4); SODIUM 142 MEQ/L (136-147); UREA NITROGEN (BUN) 15 mg/dL (9-23)
[2017-09-13 08:00] VITALS: BP 140/86
[2017-09-13 15:00] VITALS: BP 135/79
[2017-09-14 00:07] VITALS: BP 109/64
[2017-09-14 07:46] VITALS: BP 135/86
[2017-09-14] MEDS ORDERED: NICOTINE PATCH1 EAC1 TD (12:24)
[2017-09-14] MEDS ORDERED: LEVAQUIN750 MG PO (12:27)
[2017-09-14] MEDS ORDERED: PREDNISONE10 MG PO (12:29)
== END 2017-09-14 16:11 | disposition home health service (06) | DRG 192 ==
LOC: EME 13:02 → EDOF 19:47 → 5EAST 19:47 → ENRESERV 19:48 → 5EAST 21:03
PROVIDERS: Emergency Medicine; Hospitalist; Internal Medicine; Physician Assistant
DX: J44.1 Chronic obstructive pulmonary disease with (acute) exacerbation (principal); R09.02 Hypoxemia; I95.9 Hypotension, unspecified; E83.52 Hypercalcemia; K52.9 Noninfective gastroenteritis and colitis, unspecified; Z21 Asymptomatic human immunodeficiency virus [HIV] infection status; F03.90 Unspecified dementia, unspecified severity, without behavioral disturbance, psychotic disturbance, mood disturbance, and anxiety; E78.5 Hyperlipidemia, unspecified; E03.9 Hypothyroidism, unspecified; E86.0 Dehydration; I10 Essential (primary) hypertension; F17.200 Nicotine dependence, unspecified, uncomplicated; K59.00 Constipation, unspecified; Z86.718 Personal history of other venous thrombosis and embolism; Z82.5 Family history of asthma and other chronic lower respiratory diseases; Z86.73 Personal history of transient ischemic attack (TIA), and cerebral infarction without residual deficits; Z82.3 Family history of stroke; Z86.711 Personal history of pulmonary embolism
CPT/HCPCS: 71045; 80048; 80053; 81003; 82948; 83605; 83690; 85025; 85027; 87493; 93005; 94640; 94640 76; 94760; 94799; 99202; 99281; 99285; J0744; J1100; J1644; J1815; J1956; J2405; J2920; J2930; J7030; J7644; Q0164; S0030

== ENCOUNTER 2017-09-28 13:07 | Emergency (ER) | payer OTHER ==
[~2017-09-28] VITALS: Ht 152.4 cm; Wt 65.0 kg
[~2017-09-28 13:07] MED LIST changes: +PREDNISONE10 MG PO; +SEROQUEL12.5 MG PO
[2017-09-28 13:42] LABS: MCH 36.2 PG (29.0-34.0); MCV 103.4 FL (83-99); PLATELET COUNT 290 K/uL (156-360); RBC DIS.WIDTH-CV 12.7 % (11.8-14.6); RBC DIS.WIDTH-SD 48.7 % (39-53); RED BLOOD COUNT 3.87 M/uL (3.80-5.20); WHITE BLOOD COUNT 6.3 K/uL (4.1-10.2)
[2017-09-28 13:49] LABS: CHLORIDE 108 mEq/L (99-109); POTASSIUM 4.4 mEq/L (3.7-5.4); SODIUM 139 mEq/L (136-147)
[2017-09-28 13:51] LABS: GLUCOSE 101 mg/dL (70-99)
[2017-09-28 13:55] LABS: GFR ESTIMATE (CALCULATED) > 59 mL/min/
[2017-09-28 13:56] LABS: UREA NITROGEN (BUN) 16 mg/dL (9-23)
[2017-09-28 14:27] LABS: TOTAL PROTEIN 7.1 g/dL (6.4-8.3)
[2017-09-28 14:29] LABS: TOTAL BILIRUBIN 0.5 mg/dL (0.0-1.0)
[2017-09-28 14:30] LABS: ALKALINE PHOSPHATASE 79 IU/L (3-129)
[2017-09-28 14:32] LABS: AST (GOT) 17 IU/L (2-34); DIRECT BILIRUBIN 0.2 mg/dL (0.0-0.3)
[2017-09-28 14:33] LABS: ALT (GPT) 25 IU/L (3-49); LIPASE 41 U/L (1.0-51.0)
[2017-09-28 16:38] VITALS: BP 129/90
== END 2017-09-28 16:38 | disposition home or self-care (01) ==
LOC: EME 13:07
PROVIDERS: Nurse Practitioner Family
DX: E86.0 Dehydration (principal); R19.7 Diarrhea, unspecified; E05.90 Thyrotoxicosis, unspecified without thyrotoxic crisis or storm; E83.52 Hypercalcemia; I10 Essential (primary) hypertension; F41.9 Anxiety disorder, unspecified; F32.9 Major depressive disorder, single episode, unspecified; E78.5 Hyperlipidemia, unspecified; Z86.711 Personal history of pulmonary embolism; Z86.718 Personal history of other venous thrombosis and embolism; F17.200 Nicotine dependence, unspecified, uncomplicated; Z88.5 Allergy status to narcotic agent; Z88.2 Allergy status to sulfonamides; Z88.6 Allergy status to analgesic agent; Z88.8 Allergy status to other drugs, medicaments and biological substances; Z79.02 Long term (current) use of antithrombotics/antiplatelets; Z21 Asymptomatic human immunodeficiency virus [HIV] infection status; Z90.49 Acquired absence of other specified parts of digestive tract
CPT/HCPCS: 80048; 80076; 82310; 82330; 83690; 85027; J1200; J1885; J2405; J7030

== ENCOUNTER 2017-09-30 12:18 | Emergency (ER) | payer OTHER ==
[~2017-09-30] VITALS: Ht 152.4 cm; Wt 67.0 kg
[2017-09-30 13:31] LABS: APPEARANCE SL.HAZY ((CLEAR)); BILIRUBIN NEGATIVE; BLOOD NEGATIVE; COLOR YELLOW ((YELLOW)); GLUCOSE (STRIP) NEGATIVE; KETONES NEGATIVE; LEUKOCYTES NEGATIVE; NITRITE NEGATIVE; PROTEIN (STRIP) NEGATIVE; SPECIFIC GRAVITY 1.011 (1.000-1.030); UROBILINOGEN 0.2 MG/DL (0.2-1.0)
[2017-09-30 13:35] LABS: BACTERIA NONE SEEN /HPF; EPITHELIAL CELLS 2+ /HPF; MUCUS TRACE /LPF; RED BLOOD CELLS 0-5 /HPF (0-5); UCUL ADDED? NO; WHITE BLOOD CELLS 0-5 /HPF (0-5)
[2017-09-30 13:50] LABS: HEMATOCRIT 36.6 % (36.0-46.0); HEMOGLOBIN 12.5 G/DL (11.9-15.5); MCH 36.4 PG (29.0-34.0); MCHC 34.2 G/DL (30.0-36.0); MCV 106.7 FL (83-99); PLATELET COUNT 276 K/uL (156-360); RBC DIS.WIDTH-CV 12.9 % (11.8-14.6); RBC DIS.WIDTH-SD 50.4 % (39-53); RED BLOOD COUNT 3.43 M/uL (3.80-5.20); WHITE BLOOD COUNT 5.4 K/uL (4.1-10.2)
[2017-09-30 14:01] LABS: INTER. NORMALIZED RATIO 1.1
[2017-09-30 14:04] LABS: PTT 23.2 SEC (25-37)
[2017-09-30 14:20] LABS: TROP-I INTERPRETATION NEGATIVE; TROPONIN-I < 0.01 ng/mL (0.0-0.30)
[2017-09-30 14:40] LABS: ALBUMIN 3.5 G/DL (3.2-4.8); ALKALINE PHOSPHATASE 59 IU/L (3-129); ALT (GPT) 15 IU/L (3-49); AST (GOT) 14 IU/L (2-34); CHLORIDE 108 MEQ/L (99-109); CREATININE 1.2 MG/DL (0.6-1.3); GFR ESTIMATE (CALCULATED) 49 mL/min/; GLUCOSE 102 mg/dL (70-99); POTASSIUM 3.7 MEQ/L (3.7-5.4); SODIUM 140 MEQ/L (136-147); TOTAL BILIRUBIN 0.4 MG/DL (0.0-1.0); TOTAL PROTEIN 6.1 G/DL (6.4-8.3); UREA NITROGEN (BUN) 10 mg/dL (9-23)
[2017-09-30] MEDS ORDERED: CIPRO500 MG PO (14:50)
[2017-09-30 15:19] VITALS: BP 108/72
== END 2017-09-30 15:20 | disposition home or self-care (01) ==
LOC: EME 12:18
PROVIDERS: Emergency Medicine Emergency Medical Services
DX: R19.7 Diarrhea, unspecified (principal); R11.2 Nausea with vomiting, unspecified; E86.0 Dehydration; I10 Essential (primary) hypertension; E78.5 Hyperlipidemia, unspecified; F41.9 Anxiety disorder, unspecified; F32.9 Major depressive disorder, single episode, unspecified; F31.9 Bipolar disorder, unspecified; Z79.02 Long term (current) use of antithrombotics/antiplatelets; Z87.891 Personal history of nicotine dependence; Z86.19 Personal history of other infectious and parasitic diseases; Z86.718 Personal history of other venous thrombosis and embolism; Z86.73 Personal history of transient ischemic attack (TIA), and cerebral infarction without residual deficits; Z90.49 Acquired absence of other specified parts of digestive tract; Z88.5 Allergy status to narcotic agent; Z88.6 Allergy status to analgesic agent; Z88.2 Allergy status to sulfonamides; Z88.8 Allergy status to other drugs, medicaments and biological substances
CPT/HCPCS: 70450; 71045; 80053; 81003; 83880; 84443; 84484; 85027; 85610; 85730; 93005; 99281; 99284; J0780; J7040

== ENCOUNTER → 2017-10-03 | Outpatient (CLI) | payer OTHER ==
[~2017-10-03] MED LIST changes: +AIRDUO RESPICL1 EAC1 IH; +CIPRO500 MG PO
== END | disposition home or self-care (01) ==
LOC: NUC 10:00
DX: R93.8 Abnormal findings on diagnostic imaging of other specified body structures (principal)
CPT/HCPCS: 78072; A9500

== ENCOUNTER 2017-10-05 12:25 | Observation (INO) | payer OTHER ==
[~2017-10-05] VITALS: Ht 152.4 cm; Wt 66.0 kg
[~2017-10-05 12:25] MED LIST changes: -AIRDUO RESPICL1 EAC1 IH
[2017-10-05 14:47] LABS: BASOPHIL (%) 0.2 % (0-1); EOSINOPHIL (%) 3.1 % (0-5); EOSINOPHIL COUNT 0.2 K/uL (0-0.3); HEMATOCRIT 36.9 % (36.0-46.0); IMMATURE GRANULOCYTE (%) 0.2 % (0.0-0.7); LYMPHOCYTE (%) 48.1 % (15-42); LYMPHOCYTE COUNT 2.5 K/uL (1.0-2.8); MCH 36.3 PG (29.0-34.0); MCHC 35.2 G/DL (30.0-36.0); MCV 103.1 FL (83-99); MONOCYTE COUNT 0.5 K/uL (0-0.8); NEUTROPHIL (%) 39.4 % (45-76); PLATELET COUNT 316 K/uL (156-360); RBC DIS.WIDTH-CV 12.3 % (11.8-14.6); RBC DIS.WIDTH-SD 46.5 % (39-53); RED BLOOD COUNT 3.58 M/uL (3.80-5.20); WHITE BLOOD COUNT 5.1 K/uL (4.1-10.2)
[2017-10-05 14:56] LABS: ALBUMIN 3.7 g/dL (3.2-4.8); CHLORIDE 106 mEq/L (99-109); POTASSIUM 3.6 mEq/L (3.7-5.4); SODIUM 140 mEq/L (136-147)
[2017-10-05 14:58] LABS: GLUCOSE 90 mg/dL (70-99); TOTAL PROTEIN 6.4 g/dL (6.4-8.3)
[2017-10-05 15:00] LABS: TOTAL BILIRUBIN 0.5 mg/dL (0.0-1.0)
[2017-10-05 15:02] LABS: ALKALINE PHOSPHATASE 67 IU/L (3-129); CREATININE 1.4 mg/dL (0.6-1.3); GFR ESTIMATE (CALCULATED) 41 mL/min/
[2017-10-05 15:03] LABS: UREA NITROGEN (BUN) 19 mg/dL (9-23)
[2017-10-05 15:04] LABS: AST (GOT) 19 IU/L (2-34)
[2017-10-05 15:05] LABS: ALT (GPT) 17 IU/L (3-49); LIPASE 33 U/L (1.0-51.0)
[2017-10-05 17:32] LABS: APPEARANCE CLEAR ((CLEAR)); BILIRUBIN NEGATIVE; BLOOD NEGATIVE; COLOR STRAW ((YELLOW)); GLUCOSE (STRIP) NEGATIVE; KETONES NEGATIVE; LEUKOCYTES NEGATIVE; NITRITE NEGATIVE; PROTEIN (STRIP) NEGATIVE; SPECIFIC GRAVITY 1.038 (1.000-1.030); UCUL ADDED? NO; UROBILINOGEN 0.2 MG/DL (0.2-1.0)
[2017-10-05] MEDS ORDERED: SENSIPAR60 MG PO (17:47)
[2017-10-05] MEDS ORDERED: INCRUSE ELLI62.5 MCG IH ×2 (17:50→17:51)
[2017-10-05] MEDS ORDERED: AIRDUO RESPICL1 EAC1 IH (17:50)
[2017-10-05 18:17] LABS: PHOSPHORUS 2.4 mg/dL (2.5-4.9)
[2017-10-05 20:38] VITALS: BP 117/79
[2017-10-06 00:48] VITALS: BP 108/61
[2017-10-06 05:36] LABS: HEMATOCRIT 31.2 % (36.0-46.0); MCH 35.1 PG (29.0-34.0); MCHC 33.7 G/DL (30.0-36.0); MCV 104.3 FL (83-99); PLATELET COUNT 275 K/uL (156-360); RBC DIS.WIDTH-CV 12.5 % (11.8-14.6); RBC DIS.WIDTH-SD 47.8 % (39-53); RED BLOOD COUNT 2.99 M/uL (3.80-5.20); WHITE BLOOD COUNT 4.2 K/uL (4.1-10.2)
[2017-10-06 05:41] LABS: HEMOGLOBIN 10.5 G/DL (11.9-15.5)
[2017-10-06 06:19] LABS: ALBUMIN 3.1 G/DL (3.2-4.8); ALKALINE PHOSPHATASE 50 IU/L (3-129); ALT (GPT) 12 IU/L (3-49); AST (GOT) 17 IU/L (2-34); CHLORIDE 111 MEQ/L (99-109); CREATININE 1.1 MG/DL (0.6-1.3); GFR ESTIMATE (CALCULATED) 54 mL/min/; GLUCOSE 83 mg/dL (70-99); POTASSIUM 3.4 MEQ/L (3.7-5.4); SODIUM 142 MEQ/L (136-147); TOTAL PROTEIN 5.3 G/DL (6.4-8.3); UREA NITROGEN (BUN) 14 mg/dL (9-23)
[2017-10-06 06:25] LABS: TOTAL BILIRUBIN 0.5 MG/DL (0.0-1.0)
[2017-10-06 07:13] VITALS: BP 100/58
[2017-10-06 09:20] LABS: THYROTROPIN (TSH) 0.11 MIU/L (0.4-5.5)
[2017-10-06] MEDS ORDERED: SENSIPAR60 MG PO (11:47)
[2017-10-06 11:56] VITALS: BP 95/62
[2017-10-08 09:35] LABS: INTACT PARATHYROID HORMONE 566 pg/mL (10-69)
== END 2017-10-06 14:17 | disposition home or self-care (01) ==
LOC: EME 12:25 → EDOF 17:31 → ENRESERV 17:44 → 4SOUTH 19:41 → ENPENDDIS 10-06 → 4SOUTH 10-06 14:17
PROVIDERS: Emergency Medicine; Internal Medicine; Student in an Organized Health Care Education/Training Program
DX: E21.3 Hyperparathyroidism, unspecified (principal); D35.1 Benign neoplasm of parathyroid gland; E87.6 Hypokalemia; E03.9 Hypothyroidism, unspecified; B20 Human immunodeficiency virus [HIV] disease; Z86.73 Personal history of transient ischemic attack (TIA), and cerebral infarction without residual deficits; F03.90 Unspecified dementia, unspecified severity, without behavioral disturbance, psychotic disturbance, mood disturbance, and anxiety; Z86.718 Personal history of other venous thrombosis and embolism; Z86.711 Personal history of pulmonary embolism; J44.9 Chronic obstructive pulmonary disease, unspecified; F17.200 Nicotine dependence, unspecified, uncomplicated; I10 Essential (primary) hypertension; E78.5 Hyperlipidemia, unspecified; G89.29 Other chronic pain; M54.9 Dorsalgia, unspecified; F41.9 Anxiety disorder, unspecified; F32.9 Major depressive disorder, single episode, unspecified; Z90.710 Acquired absence of both cervix and uterus; Z82.3 Family history of stroke; Z82.5 Family history of asthma and other chronic lower respiratory diseases; Z88.5 Allergy status to narcotic agent; Z88.2 Allergy status to sulfonamides; Z88.8 Allergy status to other drugs, medicaments and biological substances
CPT/HCPCS: 74177; 80053; 81003; 83605; 83690; 83970; 84100; 84439; 84443; 85025; 85027; 94640; 99202; 99281; 99285; G0378; J2405; J3010; J7030; J7040

== ENCOUNTER 2017-10-17 13:21 | Inpatient (IN) | payer OTHER ==
[~2017-10-17] VITALS: Ht 152.4 cm; Wt 64.4 kg
[~2017-10-17 13:21] MED LIST changes: +AIRDUO RESPICL1 EAC1 IH
[2017-10-17 14:47] LABS: HEMOGLOBIN 12.6 G/DL (11.9-15.5); MCH 36.1 PG (29.0-34.0); MCV 100.3 FL (83-99); PLATELET COUNT 282 K/uL (156-360); RBC DIS.WIDTH-CV 11.9 % (11.8-14.6); RBC DIS.WIDTH-SD 43.5 % (39-53); RED BLOOD COUNT 3.49 M/uL (3.80-5.20); WHITE BLOOD COUNT 7.7 K/uL (4.1-10.2)
[2017-10-17 14:50] LABS: APPEARANCE CLOUDY ((CLEAR)); BILIRUBIN NEGATIVE; BLOOD NEGATIVE; COLOR YELLOW ((YELLOW)); GLUCOSE (STRIP) NEGATIVE; KETONES NEGATIVE; LEUKOCYTES TRACE; NITRITE NEGATIVE; PROTEIN (STRIP) 30; SPECIFIC GRAVITY 1.017 (1.000-1.030)
[2017-10-17 14:53] LABS: ALBUMIN 3.9 g/dL (3.2-4.8); CHLORIDE 104 mEq/L (99-109); POTASSIUM 3.2 mEq/L (3.7-5.4); SODIUM 140 mEq/L (136-147)
[2017-10-17 14:56] LABS: GLUCOSE 106 mg/dL (70-99); TOTAL PROTEIN 6.8 g/dL (6.4-8.3)
[2017-10-17 14:58] LABS: TOTAL BILIRUBIN 0.2 mg/dL (0.0-1.0)
[2017-10-17 14:58] LABS: BACTERIA NONE SEEN /HPF; CALCIUM OXALATE CRYSTALS 3+ /HPF; EPITHELIAL CELLS 2+ /HPF; MUCUS TRACE /LPF; RED BLOOD CELLS 0-5 /HPF (0-5); UCUL ADDED? NO; WHITE BLOOD CELLS 0-5 /HPF (0-5)
[2017-10-17 14:59] LABS: ALKALINE PHOSPHATASE 106 IU/L (3-129); CREATININE 1.2 mg/dL (0.6-1.3); GFR ESTIMATE (CALCULATED) 49 mL/min/
[2017-10-17 15:00] LABS: UREA NITROGEN (BUN) 14 mg/dL (9-23)
[2017-10-17 15:01] LABS: AST (GOT) 14 IU/L (2-34)
[2017-10-17 15:02] LABS: ALT (GPT) 11 IU/L (3-49)
[2017-10-17 15:03] LABS: LIPASE 32 U/L (1.0-51.0)
[2017-10-17 15:34] LABS: PHOSPHORUS 2.1 mg/dL (2.5-4.9)
[2017-10-17] MEDS ORDERED: PROMETHAZINE HC25 M1 PO (16:37)
[2017-10-17] MEDS ORDERED: KENALOG,ARISTOC15 G3 TP (16:37)
[2017-10-17] MEDS ORDERED: AUGMENTIN875 MG PO (16:37)
[2017-10-17 17:31] LABS: DIRECT BILIRUBIN 0.1 mg/dL (0.0-0.3)
[2017-10-17 17:50] LABS: INTACT PARATHYROID HORMONE 284 pg/mL (10-69)
[2017-10-17 18:02] LABS: THYROTROPIN (TSH) 0.05 MIU/L (0.4-5.5)
[2017-10-17 18:29] VITALS: BP 142/103
[2017-10-17 20:59] VITALS: BP 101/61
[2017-10-18] VITALS (7 sets, daily range): BP systolic 99–124; BP diastolic 56–87
[2017-10-18 05:53] LABS: HEMATOCRIT 30.5 % (36.0-46.0); MCH 35.4 PG (29.0-34.0); MCHC 34.4 G/DL (30.0-36.0); MCV 102.7 FL (83-99); PLATELET COUNT 228 K/uL (156-360); RBC DIS.WIDTH-CV 12.1 % (11.8-14.6); RBC DIS.WIDTH-SD 45.6 % (39-53); RED BLOOD COUNT 2.97 M/uL (3.80-5.20); WHITE BLOOD COUNT 5.5 K/uL (4.1-10.2)
[2017-10-18 05:54] LABS: HEMOGLOBIN 10.5 G/DL (11.9-15.5)
[2017-10-18 06:16] LABS: CHLORIDE 116 MEQ/L (99-109); CREATININE 1.2 MG/DL (0.6-1.3); GFR ESTIMATE (CALCULATED) 49 mL/min/; GLUCOSE 86 mg/dL (70-99); MAGNESIUM 1.6 mg/dl (1.3-2.7); PHOSPHORUS 2.4 mg/dL (2.5-4.9); SODIUM 143 MEQ/L (136-147); UREA NITROGEN (BUN) 12 mg/dL (9-23)
[2017-10-18 06:17] LABS: POTASSIUM 4.9 MEQ/L (3.7-5.4)
[2017-10-19 03:55] VITALS: BP 124/77
[2017-10-19 06:17] LABS: CHLORIDE 110 MEQ/L (99-109); GFR ESTIMATE (CALCULATED) > 59 mL/min/; GLUCOSE 83 mg/dL (70-99); PHOSPHORUS 2.4 mg/dL (2.5-4.9); SODIUM 143 MEQ/L (136-147); UREA NITROGEN (BUN) 6 mg/dL (9-23)
[2017-10-19 06:18] LABS: POTASSIUM 3.9 MEQ/L (3.7-5.4)
[2017-10-19 07:44] VITALS: BP 117/74
[2017-10-19] MEDS ORDERED: PERCOCET 5/31 TABLET PO ×2 (09:12→09:22)
[2017-10-19] MEDS ORDERED: SENSIPAR90 MG PO (09:23)
[2017-10-19] MEDS ORDERED: DOCUSATE SODIU100 MG PO (09:23)
== END 2017-10-19 12:02 | disposition home or self-care (01) | DRG 641 ==
LOC: EME 13:21 → 5SOUTH 16:33 → EDOF 16:33 → ENRESERV 16:34 → 5SOUTH 18:11
PROVIDERS: Family Medicine; Physician Assistant
DX: E83.52 Hypercalcemia (principal); D35.1 Benign neoplasm of parathyroid gland; K59.00 Constipation, unspecified; Z21 Asymptomatic human immunodeficiency virus [HIV] infection status; Z86.73 Personal history of transient ischemic attack (TIA), and cerebral infarction without residual deficits; Z86.718 Personal history of other venous thrombosis and embolism; J44.9 Chronic obstructive pulmonary disease, unspecified; I10 Essential (primary) hypertension; F31.9 Bipolar disorder, unspecified; E78.5 Hyperlipidemia, unspecified; E03.9 Hypothyroidism, unspecified; M54.9 Dorsalgia, unspecified; G89.29 Other chronic pain; F41.9 Anxiety disorder, unspecified; F17.200 Nicotine dependence, unspecified, uncomplicated; E87.6 Hypokalemia; E83.39 Other disorders of phosphorus metabolism
CPT/HCPCS: 74177; 80048; 80053; 81003; 82248; 82330; 83690; 83735; 83970; 84100; 84439; 84443; 84481; 85027; 93005; 94640; 94640 76; 94799; 99281; 99285; J1650; J1885; J2405; J3010; J7030; Q0164

== ENCOUNTER 2017-10-24 18:38 | Inpatient (IN) | payer OTHER ==
[~2017-10-24] VITALS: Ht 162.6 cm; Wt 62.7 kg
[~2017-10-24 18:38] MED LIST changes: +DOCUSATE SODIU100 MG PO; +KENALOG,ARISTOC15 G3 TP; +PROMETHAZINE HC25 M1 PO; +SENSIPAR90 MG PO
[2017-10-24 20:06] LABS: APPEARANCE CLOUDY ((CLEAR)); BILIRUBIN NEGATIVE; BLOOD NEGATIVE; COLOR YELLOW ((YELLOW)); GLUCOSE (STRIP) NEGATIVE; KETONES NEGATIVE; LEUKOCYTES TRACE; NITRITE NEGATIVE; PROTEIN (STRIP) 100; SPECIFIC GRAVITY 1.018 (1.000-1.030); UROBILINOGEN 0.2 MG/DL (0.2-1.0)
[2017-10-24 20:14] LABS: BACTERIA RARE /HPF; CALCIUM OXALATE CRYSTALS 4+ /HPF; EPITHELIAL CELLS 2+ /HPF; MUCUS 1+ /LPF
[2017-10-24 20:15] LABS: BASOPHIL (%) 0.4 % (0-1); EOSINOPHIL (%) 1.2 % (0-5); EOSINOPHIL COUNT 0.1 K/uL (0-0.3); HEMATOCRIT 36.8 % (36.0-46.0); HEMOGLOBIN 13.2 G/DL (11.9-15.5); IMMATURE GRANULOCYTE (%) 0.3 % (0.0-0.7); LYMPHOCYTE (%) 41.3 % (15-42); LYMPHOCYTE COUNT 3.2 K/uL (1.0-2.8); MCHC 35.9 G/DL (30.0-36.0); MCV 100.3 FL (83-99); MONOCYTE (%) 6.9 % (3-12); MONOCYTE COUNT 0.5 K/uL (0-0.8); NEUTROPHIL (%) 49.9 % (45-76); NEUTROPHIL COUNT 3.9 K/uL (1.8-6.4); PLATELET COUNT 277 K/uL (156-360); RBC DIS.WIDTH-CV 11.9 % (11.8-14.6); RBC DIS.WIDTH-SD 44.4 % (39-53); RED BLOOD COUNT 3.67 M/uL (3.80-5.20); WHITE BLOOD COUNT 7.8 K/uL (4.1-10.2)
[2017-10-24 20:24] LABS: CHLORIDE 102 mEq/L (99-109); POTASSIUM 3.1 mEq/L (3.7-5.4); SODIUM 142 mEq/L (136-147)
[2017-10-24 20:26] LABS: GLUCOSE 105 mg/dL (70-99)
[2017-10-24 20:28] LABS: TOTAL BILIRUBIN 0.2 mg/dL (0.0-1.0)
[2017-10-24 20:29] LABS: ALKALINE PHOSPHATASE 122 IU/L (3-129)
[2017-10-24 20:30] LABS: CREATININE 1.3 mg/dL (0.6-1.3); GFR ESTIMATE (CALCULATED) 44 mL/min/
[2017-10-24 20:31] LABS: AST (GOT) 18 IU/L (2-34); UREA NITROGEN (BUN) 8 mg/dL (9-23)
[2017-10-24 20:32] LABS: AMPHETAMINE NEGATIVE (500 ng/mL); BARBITURATES NEGATIVE (200 ng/mL); BENZODIAZEPINES NEGATIVE (150 ng/mL); BUPRENORPHINE NEGATIVE (10 ng/mL); COCAINE PRESUMPTIVE POSITIVE (150 ng/mL); METHADONE NEGATIVE (200 ng/mL); METHAMPHETAMINE NEGATIVE (500 ng/mL); OPIATES (MORPHINE) NEGATIVE (100 ng/mL); OXYCODONE NEGATIVE (100 ng/mL); PHENCYCLIDINE NEGATIVE (25 ng/mL); PROPOXYPHENE NEGATIVE (300 ng/mL); THC CANNABINOIDS NEGATIVE (50 ng/mL); TRICYCLIC ANTIDEPRESSANTS NEGATIVE (300 ng/mL)
[2017-10-24 20:33] LABS: ALT (GPT) 15 IU/L (3-49); LIPASE 27 U/L (1.0-51.0)
[2017-10-24] MEDS ORDERED: SENSIPAR60 MG PO (21:49)
[2017-10-24] MEDS ORDERED: AMOX TR-K CLV1 EAC4 PO (21:50)
[2017-10-25 00:28] VITALS: BP 137/93
[2017-10-25 06:16] LABS: HEMATOCRIT 33.3 % (36.0-46.0); HEMOGLOBIN 11.3 G/DL (11.9-15.5); MCH 34.7 PG (29.0-34.0); MCHC 33.9 G/DL (30.0-36.0); MCV 102.1 FL (83-99); PLATELET COUNT 251 K/uL (156-360); RBC DIS.WIDTH-CV 12.3 % (11.8-14.6); RBC DIS.WIDTH-SD 46.4 % (39-53); RED BLOOD COUNT 3.26 M/uL (3.80-5.20); WHITE BLOOD COUNT 6.4 K/uL (4.1-10.2)
[2017-10-25 06:50] LABS: CHLORIDE 107 MEQ/L (99-109); CREATININE 1.1 MG/DL (0.6-1.3); GFR ESTIMATE (CALCULATED) 54 mL/min/; GLUCOSE 95 mg/dL (70-99); POTASSIUM 3.6 MEQ/L (3.7-5.4); SODIUM 144 MEQ/L (136-147); UREA NITROGEN (BUN) 8 mg/dL (9-23)
[2017-10-25 07:20] VITALS: BP 112/70
[2017-10-25 08:02] LABS: MAGNESIUM 1.6 mg/dl (1.3-2.7)
[2017-10-25 08:52] LABS: FOLIC ACID (FOLATE) 11.2 NG/ML (5.0-22.0)
[2017-10-25 11:59] VITALS: BP 117/68
[2017-10-25 16:35] VITALS: BP 124/84
[2017-10-25 16:44] LABS: CHLORIDE 109 MEQ/L (99-109); CREATININE 1.1 MG/DL (0.6-1.3); GFR ESTIMATE (CALCULATED) 54 mL/min/; GLUCOSE 108 mg/dL (70-99); POTASSIUM 4.3 MEQ/L (3.7-5.4); SODIUM 143 MEQ/L (136-147); UREA NITROGEN (BUN) 6 mg/dL (9-23)
[2017-10-25 19:33] VITALS: BP 121/81
[2017-10-25 22:59] VITALS: BP 117/77
[2017-10-26 03:50] VITALS: BP 121/78
[2017-10-26 05:20] LABS: BASOPHIL (%) 0.4 % (0-1); EOSINOPHIL (%) 0.9 % (0-5); EOSINOPHIL COUNT 0.1 K/uL (0-0.3); HEMATOCRIT 33.9 % (36.0-46.0); HEMOGLOBIN 11.9 G/DL (11.9-15.5); IMMATURE GRANULOCYTE (%) 0.3 % (0.0-0.7); LYMPHOCYTE (%) 21.5 % (15-42); LYMPHOCYTE COUNT 2.4 K/uL (1.0-2.8); MCH 35.2 PG (29.0-34.0); MCHC 35.1 G/DL (30.0-36.0); MCV 100.3 FL (83-99); MONOCYTE (%) 7.6 % (3-12); MONOCYTE COUNT 0.8 K/uL (0-0.8); NEUTROPHIL (%) 69.3 % (45-76); NEUTROPHIL COUNT 7.7 K/uL (1.8-6.4); PLATELET COUNT 258 K/uL (156-360); RBC DIS.WIDTH-CV 12.1 % (11.8-14.6); RBC DIS.WIDTH-SD 44.2 % (39-53); RED BLOOD COUNT 3.38 M/uL (3.80-5.20); WHITE BLOOD COUNT 11.1 K/uL (4.1-10.2)
[2017-10-26 06:13] LABS: ALBUMIN 3.6 G/DL (3.2-4.8); ALKALINE PHOSPHATASE 95 IU/L (3-129); ALT (GPT) 15 IU/L (3-49); AST (GOT) 16 IU/L (2-34); IRON 73 MCG/DL (35-150); TOTAL BILIRUBIN 0.3 MG/DL (0.0-1.0); TOTAL PROTEIN 6.1 G/DL (6.4-8.3); TRANSFERRIN (TIBC) 229.8 mg/dL (215-380); TRANSFERRIN SATUR. 32 % (20-55); UREA NITROGEN (BUN) 5 mg/dL (9-23)
[2017-10-26 06:18] LABS: CHLORIDE 105 MEQ/L (99-109); CREATININE 1.1 MG/DL (0.6-1.3); GFR ESTIMATE (CALCULATED) 54 mL/min/; GLUCOSE 109 mg/dL (70-99); POTASSIUM 3.9 MEQ/L (3.7-5.4); SODIUM 143 MEQ/L (136-147)
[2017-10-26 07:36] VITALS: BP 151/74
[2017-10-26 07:39] LABS: FERRITIN 114 NG/ML (10-291)
[2017-10-26 10:39] LABS: BENZODIAZEPINES, URINE SCREEN Negative (200 ng/mL)
[2017-10-26 11:26] VITALS: BP 159/91
[2017-10-26 16:01] VITALS: BP 120/68
[2017-10-27 00:29] VITALS: BP 117/75
[2017-10-27 05:59] LABS: BASOPHIL (%) 0.3 % (0-1); EOSINOPHIL (%) 1.2 % (0-5); EOSINOPHIL COUNT 0.1 K/uL (0-0.3); HEMATOCRIT 36.5 % (36.0-46.0); HEMOGLOBIN 12.8 G/DL (11.9-15.5); IMMATURE GRANULOCYTE (%) 0.3 % (0.0-0.7); LYMPHOCYTE (%) 38.1 % (15-42); LYMPHOCYTE COUNT 2.8 K/uL (1.0-2.8); MCH 34.7 PG (29.0-34.0); MCHC 35.1 G/DL (30.0-36.0); MCV 98.9 FL (83-99); MONOCYTE (%) 7.7 % (3-12); MONOCYTE COUNT 0.6 K/uL (0-0.8); NEUTROPHIL (%) 52.4 % (45-76); NEUTROPHIL COUNT 3.9 K/uL (1.8-6.4); PLATELET COUNT 275 K/uL (156-360); RBC DIS.WIDTH-CV 11.9 % (11.8-14.6); RBC DIS.WIDTH-SD 43.5 % (39-53); RED BLOOD COUNT 3.69 M/uL (3.80-5.20); WHITE BLOOD COUNT 7.4 K/uL (4.1-10.2)
[2017-10-27 06:41] LABS: ALBUMIN 3.8 G/DL (3.2-4.8); ALKALINE PHOSPHATASE 109 IU/L (3-129); ALT (GPT) 12 IU/L (3-49); AST (GOT) 12 IU/L (2-34); CHLORIDE 107 MEQ/L (99-109); CREATININE 1.1 MG/DL (0.6-1.3); GFR ESTIMATE (CALCULATED) 54 mL/min/; GLUCOSE 111 mg/dL (70-99); MAGNESIUM 1.4 mg/dl (1.3-2.7); PHOSPHORUS 2.5 mg/dL (2.5-4.9); POTASSIUM 3.6 MEQ/L (3.7-5.4); SODIUM 147 MEQ/L (136-147); TOTAL PROTEIN 6.2 G/DL (6.4-8.3); UREA NITROGEN (BUN) 7 mg/dL (9-23)
[2017-10-27 06:43] LABS: TOTAL BILIRUBIN 0.4 MG/DL (0.0-1.0)
[2017-10-27 07:11] VITALS: BP 98/64
[2017-10-27 07:41] LABS: INTACT PARATHYROID HORMONE 395 pg/mL (10-69)
[2017-10-27 09:01] LABS: BENZODIAZEPINES, URINE SCREEN Negative (200 ng/mL)
[2017-10-27 15:05] VITALS: BP 109/66
[2017-10-28] VITALS: BP 117/70
[2017-10-28 06:05] LABS: BASOPHIL (%) 0.3 % (0-1); EOSINOPHIL (%) 1.7 % (0-5); EOSINOPHIL COUNT 0.1 K/uL (0-0.3); HEMATOCRIT 35.8 % (36.0-46.0); HEMOGLOBIN 12.5 G/DL (11.9-15.5); IMMATURE GRANULOCYTE (%) 0.1 % (0.0-0.7); LYMPHOCYTE (%) 43.6 % (15-42); MCH 34.4 PG (29.0-34.0); MCHC 34.9 G/DL (30.0-36.0); MCV 98.6 FL (83-99); MONOCYTE (%) 7.8 % (3-12); MONOCYTE COUNT 0.5 K/uL (0-0.8); NEUTROPHIL (%) 46.5 % (45-76); NEUTROPHIL COUNT 3.2 K/uL (1.8-6.4); PLATELET COUNT 281 K/uL (156-360); RBC DIS.WIDTH-SD 43.7 % (39-53); RED BLOOD COUNT 3.63 M/uL (3.80-5.20); WHITE BLOOD COUNT 6.9 K/uL (4.1-10.2)
[2017-10-28 06:30] LABS: ALBUMIN 3.7 G/DL (3.2-4.8); ALKALINE PHOSPHATASE 98 IU/L (3-129); ALT (GPT) 12 IU/L (3-49); AST (GOT) 13 IU/L (2-34); CHLORIDE 104 MEQ/L (99-109); CREATININE 1.2 MG/DL (0.6-1.3); GFR ESTIMATE (CALCULATED) 49 mL/min/; GLUCOSE 109 mg/dL (70-99); POTASSIUM 3.7 MEQ/L (3.7-5.4); SODIUM 141 MEQ/L (136-147); TOTAL BILIRUBIN 0.4 MG/DL (0.0-1.0); TOTAL PROTEIN 6.2 G/DL (6.4-8.3); UREA NITROGEN (BUN) 10 mg/dL (9-23)
[2017-10-28 06:36] LABS: MAGNESIUM 1.9 mg/dl (1.3-2.7)
[2017-10-28 07:05] VITALS: BP 130/84
[2017-10-28 08:56] LABS: BILIRUBIN NEGATIVE; BLOOD NEGATIVE; COLOR YELLOW ((YELLOW)); GLUCOSE (STRIP) NEGATIVE; KETONES NEGATIVE; LEUKOCYTES NEGATIVE; NITRITE NEGATIVE; PROTEIN (STRIP) NEGATIVE; SPECIFIC GRAVITY 1.008 (1.000-1.030); UROBILINOGEN 0.2 MG/DL (0.2-1.0)
[2017-10-28 09:00] LABS: APPEARANCE CLEAR ((CLEAR))
[2017-10-28 09:22] LABS: BENZODIAZEPINES, URINE SCREEN Negative (200 ng/mL)
[2017-10-28 15:14] VITALS: BP 126/79
[2017-10-29 00:36] VITALS: BP 129/75
[2017-10-29 06:26] LABS: BASOPHIL (%) 0.3 % (0-1); EOSINOPHIL (%) 2.8 % (0-5); EOSINOPHIL COUNT 0.2 K/uL (0-0.3); HEMATOCRIT 32.4 % (36.0-46.0); HEMOGLOBIN 11.2 G/DL (11.9-15.5); IMMATURE GRANULOCYTE (%) 0.3 % (0.0-0.7); LYMPHOCYTE (%) 45.6 % (15-42); LYMPHOCYTE COUNT 3.1 K/uL (1.0-2.8); MCH 34.5 PG (29.0-34.0); MCHC 34.6 G/DL (30.0-36.0); MCV 99.7 FL (83-99); MONOCYTE (%) 8.4 % (3-12); MONOCYTE COUNT 0.6 K/uL (0-0.8); NEUTROPHIL (%) 42.6 % (45-76); NEUTROPHIL COUNT 2.9 K/uL (1.8-6.4); PLATELET COUNT 266 K/uL (156-360); RBC DIS.WIDTH-CV 11.9 % (11.8-14.6); RBC DIS.WIDTH-SD 44.4 % (39-53); RED BLOOD COUNT 3.25 M/uL (3.80-5.20); WHITE BLOOD COUNT 6.9 K/uL (4.1-10.2)
[2017-10-29 07:10] LABS: ALBUMIN 3.3 G/DL (3.2-4.8); ALKALINE PHOSPHATASE 93 IU/L (3-129); ALT (GPT) 10 IU/L (3-49); AST (GOT) 11 IU/L (2-34); CHLORIDE 109 MEQ/L (99-109); CREATININE 1.1 MG/DL (0.6-1.3); GFR ESTIMATE (CALCULATED) 54 mL/min/; GLUCOSE 109 mg/dL (70-99); POTASSIUM 3.5 MEQ/L (3.7-5.4); SODIUM 142 MEQ/L (136-147); TOTAL PROTEIN 5.4 G/DL (6.4-8.3); UREA NITROGEN (BUN) 8 mg/dL (9-23)
[2017-10-29 07:13] LABS: MAGNESIUM 1.2 mg/dl (1.3-2.7); TOTAL BILIRUBIN 0.3 MG/DL (0.0-1.0)
[2017-10-29 08:00] VITALS: BP 144/93
[2017-10-29 16:14] VITALS: BP 91/51
[2017-10-30 00:18] VITALS: BP 119/62
[2017-10-30 05:44] LABS: HEMOGLOBIN 11.3 G/DL (11.9-15.5); MCH 34.5 PG (29.0-34.0); MCHC 34.2 G/DL (30.0-36.0); MCV 100.6 FL (83-99); PLATELET COUNT 249 K/uL (156-360); RBC DIS.WIDTH-CV 12.2 % (11.8-14.6); RBC DIS.WIDTH-SD 45.6 % (39-53); RED BLOOD COUNT 3.28 M/uL (3.80-5.20); WHITE BLOOD COUNT 6.4 K/uL (4.1-10.2)
[2017-10-30 06:15] LABS: CHLORIDE 108 MEQ/L (99-109); CREATININE 1.4 MG/DL (0.6-1.3); GFR ESTIMATE (CALCULATED) 41 mL/min/; GLUCOSE 103 mg/dL (70-99); MAGNESIUM 1.3 mg/dl (1.3-2.7); POTASSIUM 3.8 MEQ/L (3.7-5.4); SODIUM 143 MEQ/L (136-147); UREA NITROGEN (BUN) 13 mg/dL (9-23)
[2017-10-30 07:09] VITALS: BP 96/55
[2017-10-30 11:50] VITALS: BP 146/86
[2017-10-30 12:18] VITALS: BP 146/86
[2017-10-30 15:23] LABS: CHLORIDE 109 MEQ/L (99-109); CREATININE 1.2 MG/DL (0.6-1.3); GFR ESTIMATE (CALCULATED) 49 mL/min/; GLUCOSE 116 mg/dL (70-99); POTASSIUM 3.2 MEQ/L (3.7-5.4); SODIUM 143 MEQ/L (136-147); UREA NITROGEN (BUN) 11 mg/dL (9-23)
== END 2017-10-30 16:26 | disposition home health service (06) | DRG 643 ==
LOC: EME 18:38 → 5SOUTH 22:37 → EDOF 22:37 → ENRESERV 22:39 → 5SOUTH 23:44
PROVIDERS: Emergency Medicine; Hospitalist; Internal Medicine Gastroenterology; Internal Medicine Nephrology; Physician Assistant Medical
PROC: 0DB68ZX Excision of Stomach, Via Natural or Artificial Opening Endoscopic, Diagnostic (ICD-10-PCS; principal; 2017-10-29)
DX: E21.0 Primary hyperparathyroidism (principal); N17.9 Acute kidney failure, unspecified; B20 Human immunodeficiency virus [HIV] disease; G35 Multiple sclerosis; J43.9 Emphysema, unspecified; F11.20 Opioid dependence, uncomplicated; I10 Essential (primary) hypertension; D35.1 Benign neoplasm of parathyroid gland; Z86.711 Personal history of pulmonary embolism; G89.29 Other chronic pain; E87.6 Hypokalemia; K21.9 Gastro-esophageal reflux disease without esophagitis; Z91.19 Patient's noncompliance with other medical treatment and regimen; K29.80 Duodenitis without bleeding; Z86.73 Personal history of transient ischemic attack (TIA), and cerebral infarction without residual deficits; Z86.718 Personal history of other venous thrombosis and embolism; Z80.0 Family history of malignant neoplasm of digestive organs; E78.5 Hyperlipidemia, unspecified; F31.9 Bipolar disorder, unspecified; D64.9 Anemia, unspecified; E86.0 Dehydration; E03.9 Hypothyroidism, unspecified; K29.60 Other gastritis without bleeding; K31.7 Polyp of stomach and duodenum; E53.8 Deficiency of other specified B group vitamins; F14.10 Cocaine abuse, uncomplicated; G47.00 Insomnia, unspecified; E66.9 Obesity, unspecified; Z68.23 Body mass index [BMI] 23.0-23.9, adult; Z87.891 Personal history of nicotine dependence
CPT/HCPCS: 80048; 80048 91; 80053; 80306 90; 81003; 82306; 82607; 82728; 82746; 83540; 83690; 83735; 83970; 84100; 84466; 84999; 85025; 85027; 88305; 88342 TC; 94640 76; 99281; 99285; J0630; J1650; J1885; J1940; J2405; J2765; J3010; J3475; J3489; J7030; J7040; J7050

== ENCOUNTER 2017-11-08 18:54 | Emergency (ER) | payer OTHER ==
[~2017-11-08] VITALS: Ht 152.4 cm; Wt 61.6 kg
[~2017-11-08 18:54] MED LIST changes: +AMOX TR-K CLV1 EAC4 PO
[2017-11-08] MEDS ORDERED: NORCO 5/3251 TABLET PO (21:13)
[2017-11-08 21:41] VITALS: BP 115/80
== END 2017-11-08 21:43 | disposition home or self-care (01) ==
LOC: EME 18:54
PROC: 2W3CX1Z Immobilization of Right Lower Arm using Splint (ICD-10-PCS; principal; 2017-11-08)
DX: S62.614A Displaced fracture of proximal phalanx of right ring finger, initial encounter for closed fracture (principal); S62.616A Displaced fracture of proximal phalanx of right little finger, initial encounter for closed fracture; S90.812A Abrasion, left foot, initial encounter; W10.1XXA Fall (on)(from) sidewalk curb, initial encounter; I10 Essential (primary) hypertension; E78.5 Hyperlipidemia, unspecified; K21.9 Gastro-esophageal reflux disease without esophagitis; J44.9 Chronic obstructive pulmonary disease, unspecified; B20 Human immunodeficiency virus [HIV] disease; F31.9 Bipolar disorder, unspecified; F41.9 Anxiety disorder, unspecified; F32.9 Major depressive disorder, single episode, unspecified; F17.200 Nicotine dependence, unspecified, uncomplicated; Z86.718 Personal history of other venous thrombosis and embolism; Z86.711 Personal history of pulmonary embolism; Z90.49 Acquired absence of other specified parts of digestive tract; Z88.5 Allergy status to narcotic agent; Z88.2 Allergy status to sulfonamides; Z88.6 Allergy status to analgesic agent; Z88.8 Allergy status to other drugs, medicaments and biological substances
CPT/HCPCS: 73110; 73130; 99281; 99284; J3010

== ENCOUNTER 2017-11-18 17:01 | Inpatient (IN) | payer OTHER ==
[~2017-11-18] VITALS: Ht 157.5 cm; Wt 63.1 kg
[2017-11-18 17:50] LABS: HEMATOCRIT 35.6 % (36.0-46.0); HEMOGLOBIN 12.9 G/DL (11.9-15.5); MCH 35.9 PG (29.0-34.0); MCHC 36.2 G/DL (30.0-36.0); MCV 99.2 FL (83-99); PLATELET COUNT 312 K/uL (156-360); RBC DIS.WIDTH-CV 12.9 % (11.8-14.6); RBC DIS.WIDTH-SD 46.6 % (39-53); RED BLOOD COUNT 3.59 M/uL (3.80-5.20); WHITE BLOOD COUNT 6.8 K/uL (4.1-10.2)
[2017-11-18 18:01] LABS: CHLORIDE 108 mEq/L (99-109); POTASSIUM 3.8 mEq/L (3.7-5.4); SODIUM 137 mEq/L (136-147)
[2017-11-18 18:03] LABS: GLUCOSE 151 mg/dL (70-99)
[2017-11-18 18:05] LABS: TOTAL BILIRUBIN 0.2 mg/dL (0.0-1.0)
[2017-11-18 18:07] LABS: ALKALINE PHOSPHATASE 101 IU/L (3-129); CREATININE 1.3 mg/dL (0.6-1.3); GFR ESTIMATE (CALCULATED) 44 mL/min/
[2017-11-18 18:08] LABS: UREA NITROGEN (BUN) 18 mg/dL (9-23)
[2017-11-18 18:09] LABS: AST (GOT) 17 IU/L (2-34)
[2017-11-18 18:10] LABS: ALT (GPT) 10 IU/L (3-49)
[2017-11-18 18:11] LABS: TROP-I INTERPRETATION NEGATIVE; TROPONIN-I < 0.01 ng/mL (0.0-0.30)
[2017-11-18 21:15] LABS: TROP-I INTERPRETATION NEGATIVE; TROPONIN-I < 0.01 ng/mL (0.0-0.30)
[2017-11-18 21:32] LABS: BASE EXCESS -2.9 mEq/L (-3 to +3); CARBOXY HGB 1.4 % (0-5); COMMENTS - BLOOD GASES A+C+; DEVICE NC; METHEMOGLOBIN 1.1 % (0-1.5); O2 FLOW 6 L/MIN; PCO2 38 mm Hg (35-45); PO2 76 mm Hg (80-100); SITE LR; TOTAL RESP RATE 28 resp/min; pH 7.37 (7.35-7.45)
[2017-11-18 23:37] LABS: INTER. NORMALIZED RATIO 1.1
[2017-11-19 00:06] LABS: PTT 16.6 SEC (25-37)
[2017-11-19 00:44] VITALS: BP 108/72
[2017-11-19 04:12] VITALS: BP 98/56
[2017-11-19 05:00] LABS: HEMATOCRIT 31.6 % (36.0-46.0); MCH 34.7 PG (29.0-34.0); MCHC 34.8 G/DL (30.0-36.0); MCV 99.7 FL (83-99); PLATELET COUNT 280 K/uL (156-360); RBC DIS.WIDTH-CV 13.2 % (11.8-14.6); RBC DIS.WIDTH-SD 48.3 % (39-53); RED BLOOD COUNT 3.17 M/uL (3.80-5.20); WHITE BLOOD COUNT 8.4 K/uL (4.1-10.2)
[2017-11-19 05:23] LABS: CHLORIDE 106 MEQ/L (99-109); CREATININE 1.2 MG/DL (0.6-1.3); GFR ESTIMATE (CALCULATED) 49 mL/min/; GLUCOSE 150 mg/dL (70-99); POTASSIUM 3.8 MEQ/L (3.7-5.4); SODIUM 135 MEQ/L (136-147); UREA NITROGEN (BUN) 23 mg/dL (9-23)
[2017-11-19 07:22] VITALS: BP 108/65
[2017-11-19 11:47] VITALS: BP 106/62
[2017-11-19 16:11] LABS: BENZODIAZEPINES, URINE SCREEN Negative (200 ng/mL)
[2017-11-19 16:22] VITALS: BP 124/67
[2017-11-19 20:00] VITALS: BP 116/68
[2017-11-20] VITALS (7 sets, daily range): BP systolic 92–137; BP diastolic 52–77
[2017-11-21] VITALS (7 sets, daily range): BP systolic 107–147; BP diastolic 59–81
[2017-11-21 09:12] LABS: CARBOXY HGB 1.4 % (0-5); COMMENTS - BLOOD GASES A+; DEVICE NC; O2 FLOW 4 L/MIN; O2 SATURATION (CALCULATED) 97.2 % (95-99); PCO2 31 mm Hg (35-45); PO2 72 mm Hg (80-100); SITE RB; TOTAL RESP RATE 36 resp/min; pH 7.43 (7.35-7.45)
[2017-11-21 09:13] LABS: BICARBONATE 20.6 mEq/L (22-26); METHEMOGLOBIN 0.8 % (0-1.5)
[2017-11-21 10:17] LABS: ALBUMIN 3.4 G/DL (3.2-4.8); ALKALINE PHOSPHATASE 65 IU/L (3-129); ALT (GPT) 44 IU/L (3-49); AST (GOT) 52 IU/L (2-34); CHLORIDE 109 MEQ/L (99-109); CREATININE 0.9 MG/DL (0.6-1.3); GFR ESTIMATE (CALCULATED) > 59 mL/min/; GLUCOSE 176 mg/dL (70-99); POTASSIUM 3.8 MEQ/L (3.7-5.4); SODIUM 141 MEQ/L (136-147); TOTAL BILIRUBIN 0.3 MG/DL (0.0-1.0); TOTAL PROTEIN 5.6 G/DL (6.4-8.3); UREA NITROGEN (BUN) 21 mg/dL (9-23)
[2017-11-21 10:34] LABS: HEMATOCRIT 28.1 % (36.0-46.0); HEMOGLOBIN 9.4 G/DL (11.9-15.5); MCH 34.6 PG (29.0-34.0); MCHC 33.5 G/DL (30.0-36.0); MCV 103.3 FL (83-99); PLATELET COUNT 255 K/uL (156-360); RBC DIS.WIDTH-CV 14.1 % (11.8-14.6); RBC DIS.WIDTH-SD 52.7 % (39-53); RED BLOOD COUNT 2.72 M/uL (3.80-5.20); WHITE BLOOD COUNT 11.4 K/uL (4.1-10.2)
[2017-11-21 13:22] LABS: TROP-I INTERPRETATION NEGATIVE; TROPONIN-I < 0.01 ng/mL (0.0-0.30)
[2017-11-21 18:30] LABS: BASOPHIL (%) 0.2 % (0-1); EOSINOPHIL (%) 0 % (0-5); HEMATOCRIT 31.1 % (36.0-46.0); HEMOGLOBIN 10.6 G/DL (11.9-15.5); IMMATURE GRANULOCYTE (%) 2.5 % (0.0-0.7); LYMPHOCYTE (%) 8.5 % (15-42); LYMPHOCYTE COUNT 1.1 K/uL (1.0-2.8); MCH 34.9 PG (29.0-34.0); MCHC 34.1 G/DL (30.0-36.0); MCV 102.3 FL (83-99); MONOCYTE (%) 3.6 % (3-12); MONOCYTE COUNT 0.5 K/uL (0-0.8); NEUTROPHIL (%) 85.2 % (45-76); NEUTROPHIL COUNT 10.8 K/uL (1.8-6.4); NRBC (%) 0.2 /100 WBC (0-0); PLATELET COUNT 294 K/uL (156-360); RBC DIS.WIDTH-CV 14.1 % (11.8-14.6); RBC DIS.WIDTH-SD 52.8 % (39-53); RED BLOOD COUNT 3.04 M/uL (3.80-5.20); WHITE BLOOD COUNT 12.6 K/uL (4.1-10.2)
[2017-11-21 19:31] LABS: APPEARANCE CLEAR ((CLEAR)); BILIRUBIN NEGATIVE; BLOOD NEGATIVE; COLOR COLORLESS ((YELLOW)); GLUCOSE (STRIP) NEGATIVE; KETONES NEGATIVE; LEUKOCYTES NEGATIVE; NITRITE NEGATIVE; PROTEIN (STRIP) NEGATIVE; SPECIFIC GRAVITY 1.005 (1.000-1.030); UCUL ADDED? NO; UROBILINOGEN 0.2 MG/DL (0.2-1.0)
[2017-11-21 20:05] LABS: ERTH.SED.RATE 16 MM/HR (0-30)
[2017-11-22] VITALS (7 sets, daily range): BP systolic 114–146; BP diastolic 62–80
[2017-11-23 04:00] VITALS: BP 111/73
[2017-11-23 05:20] LABS: HEMATOCRIT 28.5 % (36.0-46.0); MCH 35.3 PG (29.0-34.0); MCHC 35.1 G/DL (30.0-36.0); MCV 100.7 FL (83-99); NRBC (%) 1.6 /100 WBC (0-0); PLATELET COUNT 278 K/uL (156-360); RBC DIS.WIDTH-CV 14.1 % (11.8-14.6); RBC DIS.WIDTH-SD 51.5 % (39-53); RED BLOOD COUNT 2.83 M/uL (3.80-5.20); WHITE BLOOD COUNT 11.6 K/uL (4.1-10.2)
[2017-11-23 06:14] LABS: CHLORIDE 101 MEQ/L (99-109); CREATININE 0.8 MG/DL (0.6-1.3); GFR ESTIMATE (CALCULATED) > 59 mL/min/; GLUCOSE 184 mg/dL (70-99); POTASSIUM 3.7 MEQ/L (3.7-5.4); SODIUM 143 MEQ/L (136-147); UREA NITROGEN (BUN) 23 mg/dL (9-23)
[2017-11-23 08:22] VITALS: BP 138/86
[2017-11-23 11:26] VITALS: BP 110/58
[2017-11-23 15:20] VITALS: BP 147/98
[2017-11-23 19:54] VITALS: BP 140/86
[2017-11-23 23:20] VITALS: BP 125/89
[2017-11-24 03:12] VITALS: BP 119/73
[2017-11-24 05:44] LABS: HEMATOCRIT 30.3 % (36.0-46.0); HEMOGLOBIN 10.7 G/DL (11.9-15.5); MCH 35.4 PG (29.0-34.0); MCHC 35.3 G/DL (30.0-36.0); MCV 100.3 FL (83-99); PLATELET COUNT 311 K/uL (156-360); RBC DIS.WIDTH-CV 14.2 % (11.8-14.6); RBC DIS.WIDTH-SD 51.6 % (39-53); RED BLOOD COUNT 3.02 M/uL (3.80-5.20); WHITE BLOOD COUNT 13.8 K/uL (4.1-10.2)
[2017-11-24 06:15] LABS: CHLORIDE 100 MEQ/L (99-109); CREATININE 0.8 MG/DL (0.6-1.3); GFR ESTIMATE (CALCULATED) > 59 mL/min/; SODIUM 142 MEQ/L (136-147); UREA NITROGEN (BUN) 27 mg/dL (9-23)
[2017-11-24 06:21] LABS: GLUCOSE 109 mg/dL (70-99); POTASSIUM 4.5 MEQ/L (3.7-5.4)
[2017-11-24 08:19] VITALS: BP 141/86
[2017-11-24 12:00] VITALS: BP 111/69
[2017-11-24 16:00] VITALS: BP 150/96
[2017-11-24 20:34] VITALS: BP 134/93
[2017-11-25 00:14] VITALS: BP 145/71
[2017-11-25 03:12] VITALS: BP 116/62
[2017-11-25 06:54] VITALS: BP 126/82
[2017-11-25] MEDS ORDERED: AMOX TR-K CLV1 EAC4 PO (11:56)
[2017-11-25] MEDS ORDERED: MUCINEX600 MG PO (11:57)
[2017-11-25] MEDS ORDERED: PANTOPRAZOLE SO40 MG PO (11:58)
[2017-11-25] MEDS ORDERED: PREDNISONE5 MG PO (12:11)
== END 2017-11-25 13:15 | disposition home health service (06) | DRG 189 ==
LOC: EME 17:01 → 4SOUTH 22:59 → EDOF 22:59 → ENRESERV 23:04 → 4SOUTH 23:55 → 4EAST 11-19 10:08 → 4SOUTH 11-19 10:08 → ENRESERV 11-21 18:25 → 4EAST 11-21 19:46
PROVIDERS: Internal Medicine; Internal Medicine Cardiovascular Disease; Nurse Practitioner Adult Health; Nurse Practitioner Family; Student in an Organized Health Care Education/Training Program
DX: J96.01 Acute respiratory failure with hypoxia (principal); J44.1 Chronic obstructive pulmonary disease with (acute) exacerbation; J44.0 Chronic obstructive pulmonary disease with (acute) lower respiratory infection; J20.9 Acute bronchitis, unspecified; J45.901 Unspecified asthma with (acute) exacerbation; B20 Human immunodeficiency virus [HIV] disease; E87.2 Acidosis; Z91.19 Patient's noncompliance with other medical treatment and regimen; D35.1 Benign neoplasm of parathyroid gland; E21.3 Hyperparathyroidism, unspecified; G89.29 Other chronic pain; K29.80 Duodenitis without bleeding; R00.0 Tachycardia, unspecified; E03.9 Hypothyroidism, unspecified; E11.9 Type 2 diabetes mellitus without complications; E78.5 Hyperlipidemia, unspecified; G43.909 Migraine, unspecified, not intractable, without status migrainosus; F03.90 Unspecified dementia, unspecified severity, without behavioral disturbance, psychotic disturbance, mood disturbance, and anxiety; F14.90 Cocaine use, unspecified, uncomplicated; F31.9 Bipolar disorder, unspecified; F41.9 Anxiety disorder, unspecified; F17.210 Nicotine dependence, cigarettes, uncomplicated; I10 Essential (primary) hypertension; K21.9 Gastro-esophageal reflux disease without esophagitis; Z86.711 Personal history of pulmonary embolism; Z86.718 Personal history of other venous thrombosis and embolism; Z86.73 Personal history of transient ischemic attack (TIA), and cerebral infarction without residual deficits
CPT/HCPCS: 36600; 71045; 71046; 71250; 71275; 80048; 80053; 80306 90; 81003; 82803; 83605; 83880; 84484; 85025; 85027; 85379; 85610; 85651; 85730; 87040; 87070; 87205; 93005; 94640; 94664; 94669; 94760; 94799; 97530 GP; 99281; 99285; G0378; G8978 GP CI; G8979 GP CH; J0456; J0696; J1644; J1940; J1956; J2405; J2920; J2930; J3475; J7030; J7512

== ENCOUNTER 2017-12-27 15:39 | Inpatient (IN) | payer OTHER ==
[~2017-12-27] VITALS: Ht 152.4 cm; Wt 52.4 kg
[~2017-12-27 15:39] MED LIST changes: +MUCINEX600 MG PO; +PREDNISONE5 MG PO
[2017-12-27 17:04] LABS: HEMATOCRIT 36.1 % (36.0-46.0); HEMOGLOBIN 13.3 G/DL (11.9-15.5); MCH 36.3 PG (29.0-34.0); MCHC 36.8 G/DL (30.0-36.0); MCV 98.6 FL (83-99); PLATELET COUNT 275 K/uL (156-360); RBC DIS.WIDTH-CV 12.1 % (11.8-14.6); RBC DIS.WIDTH-SD 44.3 % (39-53); RED BLOOD COUNT 3.66 M/uL (3.80-5.20); WHITE BLOOD COUNT 8.9 K/uL (4.1-10.2)
[2017-12-27 17:27] LABS: ALBUMIN 4.2 g/dL (3.2-4.8); CHLORIDE 102 mEq/L (99-109); SODIUM 140 mEq/L (136-147)
[2017-12-27 17:30] LABS: GLUCOSE 105 mg/dL (70-99)
[2017-12-27 17:32] LABS: TOTAL BILIRUBIN 0.5 mg/dL (0.0-1.0)
[2017-12-27 17:33] LABS: ALKALINE PHOSPHATASE 104 IU/L (3-129); CREATININE 1.3 mg/dL (0.6-1.3); GFR ESTIMATE (CALCULATED) 44 mL/min/
[2017-12-27 17:34] LABS: UREA NITROGEN (BUN) 12 mg/dL (9-23)
[2017-12-27 17:35] LABS: AST (GOT) 20 IU/L (2-34)
[2017-12-27 17:36] LABS: ALT (GPT) 10 IU/L (3-49)
[2017-12-27 17:37] LABS: LIPASE 20 U/L (1.0-51.0)
[2017-12-27 19:45] LABS: MAGNESIUM 2.4 mg/dL (1.3-2.7)
[2017-12-27 19:50] LABS: PHOSPHORUS 1.5 mg/dL (2.5-4.9)
[2017-12-27] MEDS ORDERED: AMBIEN5 MG PO (20:01)
[2017-12-27 21:35] LABS: APPEARANCE CLOUDY ((CLEAR)); BILIRUBIN NEGATIVE; BLOOD NEGATIVE; COLOR YELLOW ((YELLOW)); GLUCOSE (STRIP) NEGATIVE; KETONES 5; LEUKOCYTES NEGATIVE; NITRITE NEGATIVE; PROTEIN (STRIP) 30; SPECIFIC GRAVITY 1.015 (1.000-1.030); UROBILINOGEN 0.2 MG/DL (0.2-1.0)
[2017-12-27 22:03] LABS: BACTERIA RARE /HPF; EPITHELIAL CELLS 2+ /HPF; HYALINE CASTS 30-40 /LPF; MUCUS 3+ /LPF; RED BLOOD CELLS 0-5 /HPF (0-5); UCUL ADDED? YES
[2017-12-27 22:22] VITALS: BP 132/88
[2017-12-27 23:05] LABS: INTACT PARATHYROID HORMONE 348 pg/mL (10-69)
[2017-12-28] VITALS (7 sets, daily range): BP systolic 105–158; BP diastolic 58–81
[2017-12-28 06:07] LABS: BASOPHIL (%) 0.4 % (0-1); EOSINOPHIL COUNT 0.1 K/uL (0-0.3); HEMATOCRIT 33.3 % (36.0-46.0); HEMOGLOBIN 11.8 G/DL (11.9-15.5); IMMATURE GRANULOCYTE (%) 0.3 % (0.0-0.7); LYMPHOCYTE (%) 54.6 % (15-42); LYMPHOCYTE COUNT 3.8 K/uL (1.0-2.8); MCH 35.8 PG (29.0-34.0); MCHC 35.4 G/DL (30.0-36.0); MCV 100.9 FL (83-99); MONOCYTE (%) 7.4 % (3-12); MONOCYTE COUNT 0.5 K/uL (0-0.8); NEUTROPHIL (%) 36.3 % (45-76); NEUTROPHIL COUNT 2.5 K/uL (1.8-6.4); PLATELET COUNT 231 K/uL (156-360); RBC DIS.WIDTH-CV 12.5 % (11.8-14.6); RBC DIS.WIDTH-SD 46.8 % (39-53); WHITE BLOOD COUNT 6.9 K/uL (4.1-10.2)
[2017-12-28 06:39] LABS: CHLORIDE 109 MEQ/L (99-109); GFR ESTIMATE (CALCULATED) > 59 mL/min/; GLUCOSE 76 mg/dL (70-99); PHOSPHORUS 2.2 mg/dL (2.5-4.9); SODIUM 141 MEQ/L (136-147); UREA NITROGEN (BUN) 12 mg/dL (9-23)
[2017-12-28 07:00] LABS: POTASSIUM 3.7 MEQ/L (3.7-5.4)
[2017-12-28 12:49] LABS: TROP-I INTERPRETATION NEGATIVE; TROPONIN-I 0.02 ng/mL (0.0-0.30)
[2017-12-29 03:20] VITALS: BP 120/71
[2017-12-29 05:44] LABS: BASOPHIL (%) 0.2 % (0-1); EOSINOPHIL (%) 0.9 % (0-5); EOSINOPHIL COUNT 0.1 K/uL (0-0.3); HEMATOCRIT 29.1 % (36.0-46.0); HEMOGLOBIN 10.5 G/DL (11.9-15.5); IMMATURE GRANULOCYTE (%) 0.2 % (0.0-0.7); LYMPHOCYTE (%) 44.8 % (15-42); LYMPHOCYTE COUNT 3.6 K/uL (1.0-2.8); MCH 36.1 PG (29.0-34.0); MCHC 36.1 G/DL (30.0-36.0); MONOCYTE (%) 6.2 % (3-12); MONOCYTE COUNT 0.5 K/uL (0-0.8); NEUTROPHIL (%) 47.7 % (45-76); NEUTROPHIL COUNT 3.8 K/uL (1.8-6.4); PLATELET COUNT 227 K/uL (156-360); RBC DIS.WIDTH-CV 12.5 % (11.8-14.6); RBC DIS.WIDTH-SD 45.8 % (39-53); RED BLOOD COUNT 2.91 M/uL (3.80-5.20); WHITE BLOOD COUNT 8.1 K/uL (4.1-10.2)
[2017-12-29 06:19] LABS: CHLORIDE 113 MEQ/L (99-109); CREATININE 0.8 MG/DL (0.6-1.3); GFR ESTIMATE (CALCULATED) > 59 mL/min/; GLUCOSE 88 mg/dL (70-99); POTASSIUM 3.2 MEQ/L (3.7-5.4); SODIUM 144 MEQ/L (136-147); UREA NITROGEN (BUN) 6 mg/dL (9-23)
[2017-12-29 06:38] LABS: PHOSPHORUS < 1.0 mg/dL (2.5-4.9)
[2017-12-29 07:59] VITALS: BP 135/88
[2017-12-29 11:11] VITALS: BP 138/94
[2017-12-29 16:00] VITALS: BP 132/91
[2017-12-30 05:59] LABS: BASOPHIL (%) 0.3 % (0-1); EOSINOPHIL (%) 1.1 % (0-5); EOSINOPHIL COUNT 0.1 K/uL (0-0.3); HEMATOCRIT 28.8 % (36.0-46.0); HEMOGLOBIN 10.3 G/DL (11.9-15.5); IMMATURE GRANULOCYTE (%) 0.3 % (0.0-0.7); LYMPHOCYTE COUNT 3.1 K/uL (1.0-2.8); MCH 35.4 PG (29.0-34.0); MCHC 35.8 G/DL (30.0-36.0); MONOCYTE (%) 8.8 % (3-12); MONOCYTE COUNT 0.6 K/uL (0-0.8); NEUTROPHIL (%) 42.5 % (45-76); NEUTROPHIL COUNT 2.8 K/uL (1.8-6.4); PLATELET COUNT 198 K/uL (156-360); RBC DIS.WIDTH-CV 12.6 % (11.8-14.6); RBC DIS.WIDTH-SD 45.9 % (39-53); RED BLOOD COUNT 2.91 M/uL (3.80-5.20); WHITE BLOOD COUNT 6.6 K/uL (4.1-10.2)
[2017-12-30 06:27] LABS: CHLORIDE 116 MEQ/L (99-109); CREATININE 0.6 MG/DL (0.6-1.3); GFR ESTIMATE (CALCULATED) > 59 mL/min/; GLUCOSE 82 mg/dL (70-99); PHOSPHORUS 1.3 mg/dL (2.5-4.9); POTASSIUM 2.9 MEQ/L (3.7-5.4); SODIUM 146 MEQ/L (136-147); UREA NITROGEN (BUN) 3 mg/dL (9-23)
[2017-12-30 07:46] VITALS: BP 137/82
[2017-12-30 15:34] VITALS: BP 119/75
[2017-12-30 15:54] LABS: ALBUMIN 3.2 G/DL (3.2-4.8); CHLORIDE 116 MEQ/L (99-109); CREATININE 0.6 MG/DL (0.6-1.3); GFR ESTIMATE (CALCULATED) > 59 mL/min/; GLUCOSE 94 mg/dL (70-99); POTASSIUM 3.3 MEQ/L (3.7-5.4); SODIUM 145 MEQ/L (136-147); UREA NITROGEN (BUN) 3 mg/dL (9-23)
[2017-12-30 15:57] LABS: MAGNESIUM 2.1 mg/dl (1.3-2.7); PHOSPHORUS 1.9 mg/dL (2.5-4.9)
[2017-12-31 03:16] VITALS: BP 100/67
[2017-12-31 06:46] LABS: ALBUMIN 3.1 G/DL (3.2-4.8); CHLORIDE 117 MEQ/L (99-109); CREATININE 0.9 MG/DL (0.6-1.3); GFR ESTIMATE (CALCULATED) > 59 mL/min/; GLUCOSE 106 mg/dL (70-99); POTASSIUM 3.8 MEQ/L (3.7-5.4); SODIUM 145 MEQ/L (136-147); UREA NITROGEN (BUN) 3 mg/dL (9-23)
[2017-12-31 06:47] LABS: MAGNESIUM 1.6 mg/dl (1.3-2.7)
[2017-12-31 07:04] VITALS: BP 110/73
[2017-12-31 11:19] VITALS: BP 100/71
[2017-12-31 15:10] VITALS: BP 122/61
[2018-01-01 00:09] VITALS: BP 128/79
[2018-01-01 06:18] LABS: ALBUMIN 3.1 G/DL (3.2-4.8); CHLORIDE 114 MEQ/L (99-109); GFR ESTIMATE (CALCULATED) > 59 mL/min/; GLUCOSE 117 mg/dL (70-99); PHOSPHORUS 2.5 mg/dL (2.5-4.9); POTASSIUM 3.4 MEQ/L (3.7-5.4); SODIUM 145 MEQ/L (136-147); UREA NITROGEN (BUN) 7 mg/dL (9-23)
[2018-01-01 06:19] LABS: ALBUMIN 3.1 G/DL (3.2-4.8); ALKALINE PHOSPHATASE 72 IU/L (3-129); ALT (GPT) 13 IU/L (3-49); AST (GOT) 14 IU/L (2-34); CHLORIDE 114 MEQ/L (99-109); GFR ESTIMATE (CALCULATED) > 59 mL/min/; GLUCOSE 117 mg/dL (70-99); MAGNESIUM 1.3 mg/dl (1.3-2.7); POTASSIUM 3.4 MEQ/L (3.7-5.4); SODIUM 145 MEQ/L (136-147); TOTAL BILIRUBIN 0.2 MG/DL (0.0-1.0); UREA NITROGEN (BUN) 7 mg/dL (9-23)
[2018-01-01 07:41] VITALS: BP 134/87
[2018-01-01] MEDS ORDERED: SENSIPAR90 MG PO ×2 (08:38→08:45)
== END 2018-01-01 11:35 | disposition home health service (06) | DRG 643 ==
LOC: EME 15:39 → EDOF 20:42 → 5SOUTH 20:42 → ENRESERV 20:45 → 5SOUTH 21:43 → ENPENDDIS 01-01 11:12 → 5SOUTH 01-01 11:35
PROVIDERS: Hospitalist; Internal Medicine Nephrology; Nurse Practitioner Family; Physician Assistant
DX: D35.1 Benign neoplasm of parathyroid gland (principal); E21.1 Secondary hyperparathyroidism, not elsewhere classified; B20 Human immunodeficiency virus [HIV] disease; N17.9 Acute kidney failure, unspecified; F05 Delirium due to known physiological condition; K21.9 Gastro-esophageal reflux disease without esophagitis; J44.9 Chronic obstructive pulmonary disease, unspecified; E03.9 Hypothyroidism, unspecified; E11.9 Type 2 diabetes mellitus without complications; E78.5 Hyperlipidemia, unspecified; E87.6 Hypokalemia; I10 Essential (primary) hypertension; K59.03 Drug induced constipation; T40.605A Adverse effect of unspecified narcotics, initial encounter; J98.11 Atelectasis; G89.29 Other chronic pain; M54.9 Dorsalgia, unspecified; F31.9 Bipolar disorder, unspecified; F41.9 Anxiety disorder, unspecified; F17.200 Nicotine dependence, unspecified, uncomplicated; F11.20 Opioid dependence, uncomplicated; F14.11 Cocaine abuse, in remission; Z86.718 Personal history of other venous thrombosis and embolism; Z86.73 Personal history of transient ischemic attack (TIA), and cerebral infarction without residual deficits; Z90.710 Acquired absence of both cervix and uterus; Z91.14 Patient's other noncompliance with medication regimen; Z91.19 Patient's noncompliance with other medical treatment and regimen
CPT/HCPCS: 71045; 74019; 80048; 80048 91; 80053; 80069; 81003; 82330; 83605; 83690; 83735; 83970; 84100; 84484; 85025; 85027; 87086; 92610 GN; 93005; 94640; 94799; 99281; 99285; J0630; J1644; J1885; J2060; J2405; J3010; J3475; J3480; J7030; J7040; J7050; S0028